=== PATIENT | female | born 1955 | race Caucasian/White ===

== ENCOUNTER 2019-06-28 12:07 | Inpatient (IN) ==
--- OUTSIDE RECORDS SUMMARY | 2019-06-28 12:09 | External Medical Summary | Continuity of Care Document ---
:1955 Author Name Aleida Hull Address Unavailable Unavailable , Care Team Providers Name Role Phone Tarik Crenshaw M.D. Unavailable [email or web address] PCP, NO Unavailable Unavailable Problems Active medical history not documented Allergies and Adverse Reactions Allergy history not documented Medications Medications not documented Procedures Procedures not documented Immunizations Immunizations not documented Plan of Treatment Planned Observations Planned Goals not documented Results No Known Results Results not documented
--- OUTSIDE RECORDS SUMMARY | 2019-06-28 12:09 | External Medical Summary | Continuity of Care Document ---
:1955 Author Name Aleida Hull Address Unavailable Unavailable , Care Team Providers Name Role Phone Tarik Crenshaw M.D. Unavailable [email or web address] PCP, NO Unavailable Unavailable Problems Active medical history not documented Allergies and Adverse Reactions Allergy history not documented Medications Medications not documented Procedures Procedures not documented Immunizations Immunizations not documented Plan of Treatment Planned Observations Planned Goals not documented Results No Known Results Results not documented
[2019-06-28] MEDS ORDERED: SODIUM CHLORIDE 0.9% 1000ML 1,000 ML IV ONE (12:36)
[2019-06-28] MEDS ORDERED: ONDANSETRON INJ 2 MG/ML 2 ML VIAL IV STA (13:10)
[2019-06-28] MEDS ORDERED: HYDROmorphone INJ 0.5 MG/0.5 ML SYR IV STA (13:10)
[2019-06-28 13:18] LABS: Basophils # (auto) 0.02 K/uL (0-0.2); Basophils % (auto) 0.2 %; Eosinophils # (auto) 0.04 K/uL (0-0.5); Eosinophils % (auto) 0.4 %; Hemoglobin 14.3 g/dL (12.0-16.0); Immature Granulocytes # (auto) 0.02 K/uL (0.00-0.02); Immature Granulocytes % (auto) 0.2 %; Lymphocytes # (auto) 1.43 K/uL (1.2-3.4); Lymphocytes % (auto) 14.6 %; Mean Corpuscular Hemoglobin 30.6 pg (25-34); Mean Corpuscular Volume 89.7 fL (80-100); Mean Platelet Volume 10.2 fL (7.4-10.4); Monocytes # (auto) 0.75 K/uL (0.11-0.59); Monocytes % (auto) 7.7 %; Neutrophils # (auto) 7.53 K/uL (1.4-6.5); Neutrophils % (auto) 76.9 %; Platelet Count 219 K/uL (130-400); RDW Coefficient of Variation 13.2 % (11.5-14.5); RDW Standard Deviation 43.1 fL (36.4-46.3); Red Blood Count 4.68 M/uL (4.2-5.4); White Blood Count 9.79 K/uL (4.8-10.8)
[2019-06-28 13:36] LABS: Alanine Aminotransferase 15 U/L (12-78); Albumin Level 3.5 gm/dl (3.4-5.0); Aspartate Aminotransferase 8 U/L (15-37); BUN Creatinine Ratio 14.2 (10-20); Blood Urea Nitrogen 12 mg/dl (7-18); Calcium 9.7 mg/dl (8.5-10.1); Carbon Dioxide 27 mmol/L (21-32); Chloride 104 mmol/L (98-107); Creatinine Clr Calc Pharmacy 74.2 ml/min; Est GFR (African American) 82.8; Est GFR (Non-African American) 71.4; Glucose 91 mg/dl (70-99); Lipase 46 U/L (73-393); Potassium 3.7 mmol/L (3.5-5.1); Sodium 137 mmol/L (136-145)
[2019-06-28 13:41] LABS: Albumin Globulin Ratio 0.8 (0.9-2); Alkaline Phosphatase 83 U/L (45-117); Bilirubin,Total 0.7 mg/dl (0.2-1); Globulin 4.4 gm/dl (2.5-4.0); Total Protein 7.9 gm/dl (6.4-8.2); Troponin I < 0.015 ng/ml (0-0.045)
[2019-06-28] MEDS ORDERED: IOVERSOL 100ml IV PRN (13:49)
--- NOTE | 2019-06-28 14:23 | CT Scan Report ---
ABDOMEN AND PELVIS CT WITH IV CONTRAST CT DOSE: 632.66 mGy.cm HISTORY: Acute generalized abdominal pain abd pain, appy vs diverticulitis TECHNIQUE: Multiaxial CT images of the abdomen and pelvis were performed following the IV administrat ion of 94 cc of Optiray 320, A dose lowering technique was utilized adhering to the principles of AL MICHELLE. COMPARISON STUDY: CT abdomen and pelvis 07/08/2018 FINDINGS: Minimal dependent subsegmental bibasilar atelectasis. Trace right pleural effusion. No pneumatosis or pneumoperitoneum. The imaged inferior cardiac chambers are unremarkable. Spleen, adrenal glands, tapia creas, gallbladder and liver appear unremarkable. Patency of the hepatic and portal veins. 1.6 cm int erpolar right and 6 mm inferior pole left renal hypodensities suggest probable cysts. 2 mm nonobstruc ting calculus of the inferior pole right kidney. No ureteral calculi or obstructive uropathy. Partial distention of the urinary bladder with mild wall thickening. Hysterectomy. No adnexal mass lesions. Aorta and IVC are unremarkable. No adenopathy. Multiple phleboliths are noted about the pelvis. Mild nonspecific wall thickening of the distal esophagus. No bowel obstruction. There is moderate wal l thickening involving a 13 cm segment of mid sigmoid colon with mucosal hyperemia. Colonic diverticu li are also noted within this distribution. Moderate pericolonic inflammation with trace free fluid. There is a small peripherally enhancing fluid collection along the inferior aspect of the mid sigmoid on image 39 series 3, 1.2 x 0.8 cm which courses towards the left aspect of the vaginal cuff. No yamilet inable fluid collection. There are multiple adjacent subcentimeter lymph nodes within the sigmoid mes ocolon. Fluid and stool is noted throughout the bowel. Fluid-filled nondilated appendix this likely p hysiologic. Soft tissues are unremarkable. Bones appear intact. 8 mm sclerotic focus involving the le ft L2 pedicle is unchanged from comparison. IMPRESSION: 1. 13 cm segment of sigmoid colon demonstrates moderate wall thickening with mucosal hyperemia, moder ate surrounding inflammation with trace reactive free fluid. Findings are suggestive of focal colitis , diverticulitis or mucosal neoplasm. Correlation with follow-up colonoscopy recommended. 2. There is a small peripherally enhancing fluid collection interposed between the inflamed sigmoid c olon and vaginal cuff measuring up to 1.2 x 0.8 cm suggestive of a small abscess/contained perforatio n with possible colovaginal fistula. 3. Multiple prominent lymph nodes of the sigmoid mesocolon may be reactive or metastatic. 4. No bowel obstruction, pneumatosis or pneumoperitoneum. 5. Trace right pleural effusion. ACT 112: Negative or not required by law. The above report was generated using voice recognition software. It may contain grammatical, syntax o r spelling errors. Electronically signed by: Candido Lopez M.D. 06/28/2019 2:21 PM
[2019-06-28] MEDS ORDERED: CIPROFLOXACIN 400 MG/200 ML BAG IV STA (15:02)
[2019-06-28] MEDS ORDERED: metroNIDAZOLE 500 MG/100 ML BAG IV STA (15:02)
[2019-06-28 15:31] LABS: Appearance Urine Clear (Clear); Bacteria Urine Automated Negative (Negative); Bilirubin Urine Negative (Negative); Blood Urine 3+ (Negative); Epithelial Cell Urine Auto >30 /lpf (0-5); Glucose Urine UA Negative (Negative); Ketones Urine 2+ (Negative); Leukocyte Esterase Urine Negative (Negative); Nitrite Urine Negative (Negative); Protein Urine Negative (Negative); RBC Urine Automated >30 /hpf (0-4); Specific Gravity Urine > 1.045 (1.000-1.030); Urobilinogen Urine Negative (Negative); pH Urine 5.5 (4.5-7.5)
[2019-06-28 15:35] LABS: Color Urine Dark Yellow
--- NOTE | 2019-06-28 15:39 | Surgery Consultation ---
Date of Consultation June 28, 2019 Assessment & Plan (1) Diverticulitis of intestine with abscess without bleeding: Small abscess, no acute abdominal findings. Being admitted for IV abx, can have clears tonight. Should have outpatient colonoscopy. After colonoscopy, can also be seen in surgery clinic to discuss elective resection. Supervising Physician Co-Signing Physician Notes Patient seen and examined, labs and imaging reviewed, agree with above. 64-year-old otherwise healthy female with repeated episodes of outpatient treatment for diverticulitis over the past several years presented with worsening abdominal pain and generalized ill feeling. Last colonoscopy 2016. She has a history of hysterectomy. On exam she is afebrile with stable vitals, tender to palpation in the lower abdomen and left lower quadrant. No guarding or rebound. Labs unremarkable except for a slight left shift on her WBC. CT scan showed diverticulitis with possible 1.8 cm abscess and possible colo- vaginal fistula. She denies any gas or discharge from her vagina. Diverticulitis, no indication for urgent surgical intervention Admission to medicine for IV antibiotics Will need outpatient colonoscopy in 6 to 8 weeks, possible LIME MIXER evaluation with speculum exam to assess for possible fistula. However I find the likelihood of her having an asymptomatic colovaginal fistula unlikely at this point. Would recommend outpatient follow-up with myself or another surgeon to discuss possible sigmoidectomy Surgery will follow, call with questions or concerns History of Present Illness History of Present Illness 64 y/o female with mid abdominal pain, bloating that began 3 days ago, increased yesterday. Saw her PCP this morning who referred her to the ED. She has had approx 4 attacks of diverticulitis in the past several years. Had colonoscopy in 2016, hysterectomy approx 15 years ago. Had regular BM Tuesday when symptoms began, none since then. Allergies Allergy/AdvReac Type Severity Reaction Status Date / Time No Known Allergies Allergy Unknown Verified 06/28/19 15:37 Home Medications Home Medications Medication Instructions Recorded Confirmed Type cholecalciferol (vitamin D3) 2,000 unit PO QAM 07/08/18 06/28/19 History [Vitamin D3] omeprazole 20 mg PO QAM 07/08/18 06/28/19 History trazodone 75 mg PO HS 07/08/18 06/28/19 History Saccharomyces boulardii 500 mg PO BID 06/28/19 06/28/19 History celecoxib [Celebrex] 0 mg PO UD PRN 06/28/19 06/28/19 History duloxetine [Cymbalta] 0 mg PO QAM 06/28/19 06/28/19 History hydrocodone-acetaminophen [[place]] 1 tab PO Q4H PRN 06/28/19 06/28/19 History Patient History Medical History Diverticulitis Surgical History (Updated 06/28/19 @ 15:30 by Hiram Russ Jr, PA-C) Hx of hysterectomy No significant past surgical history Social History Preferred Language: Hebrew Communication Ability: Effective Visual Impairment: No Limitations Hearing Ability: Normal Architect In Training Required: No Beliefs That Will Affect Care: None marital status: Current Living Situation: Spouse current occupational status: employed Other Information That Helps Us Care for You: No Feels Safe at Home: Yes Safety Concerns: Feels Safe At This Time Smoking Status: Former smoker Hx Alcohol Use: No Hx Substance Use: No Review of Systems Constitutional: + anorexia; no fever and no chills Gastrointestinal: + abdominal pain and + bloating; no nausea, no vomiting, no change in bowel habits, no diarrhea/loose stools, no blood in stools and no melena Genitourinary: no vaginal discharge Physical Exam 2 Constitutional: WD/WN, vitals as above Respiratory: normal respiratory effort Cardiovascular: Rate/Rhythm: regular rate Gastrointestinal (Abdomen): Inspection/Auscultation: + abdomen distended (minimal) Percussion/Palpation: + abdomen tender (suprapubic>LLQ) and abdomen soft Results & Data Vital Signs (Past 12 Hours) Vital Signs Temp Pulse Pulse Resp BP BP Pulse Ox 06/28/19 14:13 72 18 125/48 L 99 06/28/19 13:19 73 16 144/69 H 96 06/28/19 13:15 95 06/28/19 12:12 36.7 C 94 H 17 125/77 94 PG Care Time/CCT Total # of Minutes Spent Total Time Spent with Patient: Total time spent is greater than 50% in coordination of care (as documented) at patient's floor/unit and/or counseling patient: (1) Diverticulitis of intestine with abscess without bleeding Diverticulitis site: unspecified part of intestinal tract Qualified Code(s): K57.80 - Diverticulitis of intestine, part unspecified, with perforation and abscess without bleeding
--- NOTE | 2019-06-28 17:48 | Emergency Department Note ---
Entered by Rosenda Kirkpatrick acting as a scribe for Joselyn Fish MD History of Present Illness General Chief complaint: Abdominal Pain Stated complaint: ABDOMINAL PAIN Time Seen by Provider: 06/28/19 12:36 Source: patient History of Present Illness Provider complaint: abdominal pain Onset (ago): day(s) 2 Location: abdomen Pain Consistency: + intermittent and + other (worsening) Maximum Pain Intensity: 7 Quality: + stabbing and + other (abdominal pain) Associated symptoms: + loss of appetite and + other (Negative diarrhea; Negative recent bowel movement;); no fever/chills and no nausea/vomiting The patient, who is a 64 year old female with a medical history of diverticulitis and C Diff, presents to the Emergency Room with complaints of abdominal pain that started two days ago. The patient expresses that her symptoms feels like gas gas pain with intermittent stabbing sensations. The patient states that the pain is toward her epigastric region. The patient states that over the course of two days the pain is worsening. The patient expresses that she has had a loss of appetite for 3 days and has only been drinking fluids. The patient denies any urinary symptoms and states that she has not had a bowel movement in four days. The patient denies a fever, vomiting or diarrhea. The patient reports that she her latest episode of diverticulitis occurred a year ago. Patient developed C. difficile after being treated with Augmentin and subsequently Cipro Flagyl. She was on a prolonged taper of oral vancomycin thereafter. The patient denies a surgical history of an appendectomy or chol ecystectomy. Home Medications Home Medications Medication Instructions Recorded Confirmed Type cholecalciferol (vitamin D3) 2,000 unit PO QAM 07/08/18 06/28/19 History [Vitamin D3] omeprazole 20 mg PO QAM 07/08/18 06/28/19 History trazodone 75 mg PO HS 07/08/18 06/28/19 History Saccharomyces boulardii 500 mg PO BID 06/28/19 06/28/19 History celecoxib [Celebrex] 200 mg PO DAILY PRN 06/28/19 06/28/19 History duloxetine 30 mg PO DAILY 06/28/19 06/28/19 History valacyclovir [Valtrex] 2,000 mg PO BID PRN 06/28/19 06/28/19 History Allergies Allergy/AdvReac Type Severity Reaction Status Date / Time No Known Allergies Allergy Unknown Verified 06/28/19 15:37 Past Med/Surg History Medical History C. difficile diarrhea Diverticulosis Surgical History Hx of hysterectomy S/P laminectomy Cervical Family History (Updated 06/28/19 @ 19:17 by ОЛЕГ Serrano) Father Diabetes Social History Preferred Language: Kinyarwanda Communication Ability: Effective Visual Impairment: No Limitations Hearing Ability: Normal Director Of Catering Sales Required: No Beliefs That Will Affect Care: None marital status: Current Living Situation: Spouse current occupational status: employed Other Information That Helps Us Care for You: No Feels Safe at Home: Yes Safety Concerns: Feels Safe At This Time Smoking Status: Former smoker Hx Alcohol Use: Yes Alcohol Intake Frequency: Holidays/Special Occasions Hx Substance Use: No Review of Systems See HPI for pertinent positives & negatives. and A total of 10 systems reviewed and were otherwise negative Physical Exam Vital Signs Vital Signs - 24 hr 06/28/19 12:12 06/28/19 13:15 06/28/19 13:19 Temperature 36.7 C Temperature Source Oral Pulse Rate 94 H Pulse Rate [Left Finger] 73 Respiratory Rate 17 16 Respiratory Effort / Characteristics Non-Labored Non-Labored Spontaneous Respiratory Depth Normal Normal Respiratory Pattern Regular Blood Pressure 125/77 Blood Pressure [Left Arm] 144/69 H Blood Pressure Mean 93 Blood Pressure Mean [Left Arm] 94 Blood Pressure Position Sitting Pulse Oximetry 94 95 96 Oxygen Delivery Method Room Air Room Air Room Air Sepsis Recent Fever Within 48 Hours No Sepsis New/Unexplained Change in Mental Status No Sepsis Action Taken by Nursing No Action Required 06/28/19 14:13 Temperature Temperature Source Pulse Rate Pulse Rate [Left Finger] 72 Respiratory Rate 18 Respiratory Effort / Characteristics Respiratory Depth Normal Respiratory Pattern Blood Pressure Blood Pressure [Left Arm] 125/48 L Blood Pressure Mean Blood Pressure Mean [Left Arm] 73 Blood Pressure Position Pulse Oximetry 99 Oxygen Delivery Method Room Air Sepsis Recent Fever Within 48 Hours Sepsis New/Unexplained Change in Mental Status Sepsis Action Taken by Nursing Vital signs reviewed. General: Well-appearing 64 yo female, in no significant distress. HEENT: No scleral icterus, PERRLA, neck supple. Atraumatic. Cardiovascular: Regular rate and rhythm, no extra sounds. Pulmonary: Clear to auscultation bilaterally, normal work of breathing. Abdomen: Soft, tender to palpation over the suprapubic region and right lower quadrant, positive rebound and guarding, nondistended, positive bowel sounds. Musculoskeletal: Atraumatic, no peripheral edema. Neurologic: Patient awake alert and oriented x 3 Skin: Warm, dry, no rash Course Course 1248: Past medical records reviewed. The patient was evaluated in room B3. A complete history and physical exam was performed. 1455: I reviewed the patient's case with Dr. Strong, General Surgery PA. He states that he will accept her for further management. 1501: [facility] will evaluate the patient for further management. Consultations Consultation #1: I reviewed the patient's case with Dr. Strong General Surgery PA. He states that he will accept her for further management. Time: 14:55 Consultation #2: [facility] He will evaluate the patient for further management. Time: 15:01 Administered Medications Dextrose/Sodium Chloride (D5w And Nss) 1,000 mls @ 100 mls/hr IV .Q10H ADRYAN Stop: 07/28/19 17:49 Last Admin: 06/28/19 20:12 Dose: 100 mls/hr Documented by: [id number] Discontinued Medications Hydromorphone HCl (Dilaudid) 0.5 mg IV NOW STA Stop: 06/28/19 13:11 Last Admin: 06/28/19 13:17 Dose: 0.5 mg Documented by: [id number] Sodium Chloride (Nss 1000ml) 1,000 mls @ 125 mls/hr IV .Q8H ONE Stop: 06/28/19 20:35 Last Infusion: 06/28/19 20:14 Dose: 0 mls/hr Documented by: [id number] Admin: 06/28/19 13:09 Dose: 125 mls/hr Documented by: [id number] Ciprofloxacin (Cipro) 400 mg in 200 mls @ 200 mls/hr IV NOW STA Stop: 06/28/19 16:01 Last Infusion: 06/28/19 18:27 Dose: 0 mls/hr Documented by: [id number] Admin: 06/28/19 16:36 Dose: 200 mls/hr Documented by: [id number] Metronidazole (Flagyl) 500 mg in 100 mls @ 100 mls/hr IV NOW STA Stop: 06/28/19 16:01 Last Infusion: 06/28/19 16:36 Dose: 0 mls/hr Documented by: [id number] Admin: 06/28/19 15:28 Dose: 100 mls/hr Documented by: [id number] Ioversol (Optiray 320 100ml) 94 ml IV ONCE PRN PRN Reason: Interaction Checking Stop: 07/02/19 13:48 Last Admin: 06/28/19 13:50 Dose: 94 ml Documented by: [id number] Ondansetron HCl (Zofran) 4 mg IV NOW STA Stop: 06/28/19 13:11 Last Admin: 06/28/19 13:17 Dose: 4 mg Documented by: [id number] Medical Decision Making Differential Diagnosis Differential diagnosis includes: appendicitis, diverticulitis, PUD, biliary pathology, UTI, pancreatitis, obstruction, mesenteric ischemia, aortic pathology, infections, inflammatory bowel disease, renal colic, as well as others were entertained. Medical Records Attestation: I reviewed the patient's medical records. Home Medications Current Medication List: was personally reviewed by me Laboratory Data Attestation: I reviewed the patient's lab results. Result diagrams: 06/28/19 13:03 06/28/19 13:03 Lab Results 06/28/19 06/28/19 06/28/19 Range/Units 13:03 13:03 15:07 WBC 9.79 (4.8-10.8) K/uL RBC 4.68 (4.2-5.4) M/uL Hgb 14.3 (12.0-16.0) g/dL Hct 42.0 (37-47) % MCV 89.7 (80-100) fL MCH 30.6 (25-34) pg MCHC 34.0 (32-36) g/dL RDW Std Deviation 43.1 (36.4-46.3) fL RDW Coeff of [place] 13.2 (11.5-14.5) % Plt Count 219 (130-400) K/uL MPV 10.2 (7.4-10.4) fL Immature Gran % (Auto) 0.2 % Neut % (Auto) 76.9 % Lymph % (Auto) 14.6 % [place] % (Auto) 7.7 % Eos % (Auto) 0.4 % Baso % (Auto) 0.2 % Immature Gran # (Auto) 0.02 (0.00-0.02) K/uL Neut # (Auto) 7.53 H (1.4-6.5) K/uL Lymph # (Auto) 1.43 (1.2-3.4) K/uL [place] # (Auto) 0.75 H (0.11-0.59) K/uL Eos # (Auto) 0.04 (0-0.5) K/uL Baso # (Auto) 0.02 (0-0.2) K/uL Sodium 137 (136-145) mmol/L Potassium 3.7 (3.5-5.1) mmol/L Chloride 104 (98-107) mmol/L Carbon Dioxide 27 (21-32) mmol/L Anion Gap 7.0 (3-11) BUN 12 (7-18) mg/dl Creatinine 0.85 (0.6-1.2) mg/dl Est Cr Clr Drug Dosing 74.2 ml/min Est GFR ( Amer) 82.8 Est GFR (Non-Af Amer) 71.4 BUN/Creatinine Ratio 14.2 (10-20) Glucose 91 (70-99) mg/dl Calcium 9.7 (8.5-10.1) mg/dl Total Bilirubin 0.7 (0.2-1) mg/dl AST 8 L (15-37) U/L ALT 15 (12-78) U/L Alkaline Phosphatase 83 (45-117) U/L Troponin I < 0.015 (0-0.045) ng/ml Total Protein 7.9 (6.4-8.2) gm/dl Albumin 3.5 (3.4-5.0) gm/dl Globulin 4.4 H (2.5-4.0) gm/dl Albumin/Globulin Ratio 0.8 L (0.9-2) Lipase 46 L (73-393) U/L Urine Color Dark Yellow Urine Appearance Clear (Clear) Urine pH 5.5 (4.5-7.5) Ur Specific [place] > 1.045 H (1.000-1.030) Urine Protein Negative (Negative) Urine Glucose (UA) Negative (Negative) Urine Ketones 2+ H (Negative) Urine Blood 3+ H (Negative) Urine Nitrite Negative (Negative) Urine Bilirubin Negative (Negative) Urine Urobilinogen Negative (Negative) Ur Leukocyte Esterase Negative (Negative) Urine WBC (Auto) 5-10 H (0-5) /hpf Urine RBC (Auto) >30 H (0-4) /hpf U Hyaline Cast (Auto) 1-5 (0-5) /lpf U Epithel Cells (Auto) >30 H (0-5) /lpf Urine Bacteria (Auto) Negative (Negative) Imaging Data Radiologist's Impression: Radiology results as stated below per my review and the radiologist's interpretation: ABDOMEN AND PELVIS CT WITH IV CONTRAST CT DOSE: 632.66 mGy.cm HISTORY: Acute generalized abdominal pain abd pain, appy vs diverticulitis TECHNIQUE: Multiaxial CT images of the abdomen and pelvis were performed following the IV administration of 94 cc of Optiray 320, A dose lowering technique was utilized adhering to the principles of ALARA. COMPARISON STUDY: CT abdomen and pelvis 07/08/2018 FINDINGS: Minimal dependent subsegmental bibasilar atelectasis. Trace right pleural effusion. No pneumatosis or pneumoperitoneum. The imaged inferior cardiac chambers are unremarkable. Spleen, adrenal glands, pancreas, gallbladder and liver appear unremarkable. Patency of the hepatic and portal veins. 1.6 cm interpolar right and 6 mm inferior pole left renal hypodensities suggest probable cysts. 2 mm nonobstructing calculus of the inferior pole right kidney. No ureteral calculi or obstructive uropathy. Partial distention of the urinary bladder with mild wall thickening. Hysterectomy. No adnexal mass lesions. Aorta and IVC are unremarkable. No adenopathy. Multiple phleboliths are noted about the pelvis. Mild nonspecific wall thickening of the distal esophagus. No bowel obstruction. There is moderate wall thickening involving a 13 cm segment of mid sigmoid colon with mucosal hyperemia. Colonic diverticuli are also noted within this distribution. Moderate pericolonic inflammation with trace free fluid. There is a small peripherally enhancing fluid collection along the inferior aspect of the mid sigmoid on image 39 series 3, 1.2 x 0.8 cm which courses towards the left aspect of the vaginal cuff. No drainable fluid collection. There are multiple adjacent subcentimeter lymph nodes within the sigmoid mesocolon. Fluid and stool is noted throughout the bowel. Fluid-filled nondilated appendix this likely physiologic. Soft tissues are unremarkable. Bones appear intact. 8 mm sclerotic focus involving the left L2 pedicle is unchanged from comparison. IMPRESSION: 1. 13 cm segment of sigmoid colon demonstrates moderate wall thickening with mucosal hyperemia, moderate surrounding inflammation with trace reactive free fluid. Findings are suggestive of focal colitis, diverticulitis or mucosal neoplasm. Correlation with follow-up colonoscopy recommended. 2. There is a small peripherally enhancing fluid collection interposed between the inflamed sigmoid colon and vaginal cuff measuring up to 1.2 x 0.8 cm suggestive of a small abscess/contained perforation with possible colovaginal fistula. 3. Multiple prominent lymph nodes of the sigmoid mesocolon may be reactive or metastatic. 4. No bowel obstruction, pneumatosis or pneumoperitoneum. 5. Trace right pleural effusion. ACT 112: Negative or not required by law. The above report was generated using voice recognition software. It may contain grammatical, syntax or spelling errors. Electronically signed by: Candido Lopez M.D. 06/28/2019 2:21 PM ECG Data Attestation: I personally reviewed and interpreted this ECG as follows: Indication: + abdominal pain Rate (beats per minute): 68 Rhythm: + normal sinus ECG Intervals/blocks: + Normal QT ECG ST segments: + ST elevation (Nonspecific in lateral leads) ECG Findings: + Other (No ectopy) Comparison ECG Date: from (11/02/2011) Change: no significant change Blood Pressure Blood Pressure Findings: Elevated blood pressure Blood Pressure Disposition: further management by hospitalist MDM Narrative This patient was evaluated and appeared to be in no significant distress. Physical examination is significant for midline to right lower quadrant abdominal tenderness. CT imaging was performed and reveals evidence of a thickened sigmoid with secondary small abscess of approximately 1 cm. It is located between the vaginal cuff and the sigmoid colon. Patient has a normal WBC and is afebrile. Case was discussed with general surgery PA, Alejandro Russ, he agrees the patient can stay here for initial management. Patient will be evaluated by the hospitalist service for further evaluation and management. IV Cipro and IV Flagyl have been initiated. Patient did receive IV Dilaudid and Zofran for her discomforts. She is aware of the plan for admission and agrees. Impression & Plan Diverticulitis of intestine with abscess without bleeding Discharge Plan Visit Data *Final* Discharge Date/Time: 06/28/19 17:17 Chief Complaint: Abdominal Pain Stated Complaint: ABDOMINAL PAIN ED Provider: Joselyn Fish Discharge Problem: Diverticulitis of intestine with abscess without bleeding Patient Disposition: Admitted As Inpatient Discharge Instructions Interventions: ED Discharge Assessment Last Done: 06/28/19 17:17 Discharge Problem: Diverticulitis of intestine with abscess without bleeding Qualifiers: Diverticulitis site: unspecified part of intestinal tract Qualified Code(s): K57.80 - Diverticulitis of intestine, part unspecified, with perforation and abscess without bleeding The scribe's documentation has been prepared under my direction and personally reviewed by me in its entirety. I confirm that the note above accurately reflects all work, treatment, procedures, and medical decision making performed by me.
[2019-06-28] MEDS ORDERED: MoRPHine SULFATE 4 MG/ML 1 ML CARP\\VIAL IV PRN (17:50)
[2019-06-28] MEDS ORDERED: ACETAMINOPHEN 325 MG TAB PO PRN (17:50)
[2019-06-28] MEDS ORDERED: ONDANSETRON INJ 2 MG/ML 2 ML VIAL IV PRN (17:50)
--- NOTE | 2019-06-28 19:27 | History & Physical Report ---
Date of Service June 28, 2019 Assessment & Plan (1) Diverticulitis of intestine with abscess without bleeding: -Admit to [facility] -Patient presenting by referral to PCPs office for evaluation of abdominal pain -In the ED, CT ABD/pelvis showing 1. 13 cm segment of sigmoid colon demonstrates moderate wall thickening with mucosal hyperemia, moderate surrounding inflammation with trace reactive free fluid. Findings are suggestive of focal colitis, diverticulitis or mucosal neoplasm. Correlation with follow-up colonoscopy recommended. 2. There is a small peripherally enhancing fluid collection interposed between the inflamed sigmoid colon and vaginal cuff measuring up to 1.2 x 0.8 cm suggestive of a small abscess/contained perforation with possible colovaginal fistula. 3. Multiple prominent lymph nodes of the sigmoid mesocolon may be reactive or metastatic. -Hemodynamically stable, labs unremarkable; does not appear septic -No signs or symptoms of colovaginal fistula, however may need follow-up with CUSTOM FEED MILL OPERATOR HELPER for exam with speculum -S/p Cipro and Flagyl in the ED, will continue with -History of C. difficile infection after treatment for diverticulitis in 2018, continue probiotics while on antibiotics -Clear liquids, IVF, pain control -General surgery consulted, no need for surgical intervention at this time however needs outpatient follow-up for possible elective sigmoid resection, input appreciated -will need follow-up colonoscopy in 6 to 8 weeks; last colonoscopy 2016: 2 polyps removed, diverticulosis of sigmoid colon, internal hemorrhoids (2) DVT prophylaxis: -SQ Lovenox History of Present Illness Chief Complaint: Abdominal pain Primary Care Provider: Spenser Fuller DO 64-year-old female who presents the ED for evaluation abdominal pain. Patient reports her symptoms began 4 days ago. Describes that she is having generalized abdominal pain that is worse in the lower quadrants. Denies nausea, vomiting, diarrhea. Was seen at PCPs office today and found to have low-grade fever. No chills or rigors. Was referred to ER for further evaluation. Patient with history of diverticulitis in May 2019 with subsequent C. difficile infection. Patient reports she has not had a follow-up colonoscopy since that episode diverticulitis. Denies vaginal discharge or gas. Patient denies chest pain shortness of breath. No lightheadedness, dizziness, diaphoresis, syncopal events. Denies urinary symptoms. In the ED, CT ABD/pelvis is showing sigmoid diverticulitis with small abscess. Unremarkable. Patient is hemodynamically stable. She was given IVF, IV Zofran, IV Dilaudid, IV Flagyl, IV Cipro. Allergies Allergy/AdvReac Type Severity Reaction Status Date / Time No Known Allergies Allergy Unknown Verified 06/28/19 15:37 Home Medications Home Medications Medication Instructions Recorded Confirmed Type cholecalciferol (vitamin D3) 2,000 unit PO QAM 07/08/18 06/28/19 History [Vitamin D3] omeprazole 20 mg PO QAM 07/08/18 06/28/19 History trazodone 75 mg PO HS 07/08/18 06/28/19 History Saccharomyces boulardii 500 mg PO BID 06/28/19 06/28/19 History celecoxib [Celebrex] 200 mg PO DAILY PRN 06/28/19 06/28/19 History duloxetine 30 mg PO DAILY 06/28/19 06/28/19 History valacyclovir [Valtrex] 2,000 mg PO BID PRN 06/28/19 06/28/19 History Past Med/Surg History Medical History C. difficile diarrhea Diverticulosis Surgical History Hx of hysterectomy S/P laminectomy Cervical Family History (Updated 06/28/19 @ 19:17 by ОЛЕГ Serrano) Father Diabetes Social History Preferred Language: Mongolian Communication Ability: Effective Visual Impairment: No Limitations Hearing Ability: Normal Financial Services Representative Required: No Beliefs That Will Affect Care: None marital status: Current Living Situation: Spouse current occupational status: employed Other Information That Helps Us Care for You: No Feels Safe at Home: Yes Safety Concerns: Feels Safe At This Time Smoking Status: Former smoker Hx Alcohol Use: Yes Alcohol Intake Frequency: Holidays/Special Occasions Hx Substance Use: No Review of Systems Review of Systems: ROS per HPI, all other systems reviewed and negative Physical Exam Constitutional: WD/WN, vitals as above Eyes: PERRL, conjunctivae normal, anicteric sclerae ENMT: external ear and nose normal, oropharynx normal Respiratory: normal respiratory effort, lungs clear to auscultation Cardiovascular: Rate/Rhythm: regular rate and regular rhythm Vessels: normal peripheral pulses Extremities: no edema Gastrointestinal (Abdomen): Inspection/Auscultation: normal bowel sounds Percussion/Palpation: + abdomen tender (Generalized, more pronounced in RLQ) and abdomen soft; no hepatosplenomegaly Musculoskeletal: no cyanosis or clubbing, extremities motor strength 5/5 Skin: no rashes, warm and dry Neurologic: PERRL, EOMI, accommodation nl, no face palsy, no dysarthria Psychiatric: A+Ox3, euthymic affect Results & Data Vital Signs (Past 12 Hours) Vital Signs Temp Pulse Pulse Resp BP BP Pulse Ox 06/28/19 17:42 36.6 C 74 18 144/74 H 94 06/28/19 17:17 71 20 136/78 99 06/28/19 16:20 73 20 134/47 L 06/28/19 14:13 72 18 125/48 L 99 06/28/19 13:19 73 16 144/69 H 96 06/28/19 13:15 95 06/28/19 12:12 36.7 C 94 H 17 125/77 94 Laboratory Results Short CBC 06/28/19 Range/Units 13:03 WBC 9.79 (4.8-10.8) K/uL Hgb 14.3 (12.0-16.0) g/dL Hct 42.0 (37-47) % Plt Count 219 (130-400) K/uL BMP 06/28/19 13:03 Sodium 137 Potassium 3.7 Chloride 104 Carbon Dioxide 27 BUN 12 Creatinine 0.85 Glucose 91 Calcium 9.7 Cardiac Enzymes 06/28/19 Range/Units 13:03 Troponin I < 0.015 (0-0.045) ng/ml Liver Function 06/28/19 Range/Units 13:03 Total Bilirubin 0.7 (0.2-1) mg/dl AST 8 L (15-37) U/L ALT 15 (12-78) U/L Alkaline Phosphatase 83 (45-117) U/L Albumin 3.5 (3.4-5.0) gm/dl Urine 06/28/19 Range/Units 15:07 Urine Color Dark Yellow Urine Appearance Clear (Clear) Urine pH 5.5 (4.5-7.5) Ur Specific [place] > 1.045 H (1.000-1.030) Urine Protein Negative (Negative) Urine Glucose (UA) Negative (Negative) Diagnostic Findings CT ABD/PELVIS IMPRESSION: 1. 13 cm segment of sigmoid colon demonstrates moderate wall thickening with mucosal hyperemia, moderate surrounding inflammation with trace reactive free fluid. Findings are suggestive of focal colitis, diverticulitis or mucosal neoplasm. Correlation with follow-up colonoscopy recommended. 2. There is a small peripherally enhancing fluid collection interposed between the inflamed sigmoid colon and vaginal cuff measuring up to 1.2 x 0.8 cm suggestive of a small abscess/contained perforation with possible colovaginal fistula. 3. Multiple prominent lymph nodes of the sigmoid mesocolon may be reactive or metastatic. 4. No bowel obstruction, pneumatosis or pneumoperitoneum. 5. Trace right pleural effusion Code Status & VTE Plan VTE Prophylaxis Plan VTE Prophylaxis will be ordered: Yes Supervising Physician Co-Signing Physician Notes Pt was seen and examined. Agreed with Lisette DENNEY exam, assessment and plan. 64 yo F with PMH of diverticulitis present to the ER with worsening abdominal pain. Pt said that abdominal pain is diffuse but more intense in the left lower area, describes pain as stabbing and intermittent. CT abd/pelvis done showed 13 cm segment of sigmoid colon demonstrates moderate wall thickening with mucosal hyperemia, moderate surrounding inflammation with trace reactive free fluid. Findings are suggestive of focal colitis, diverticulitis or mucosal neoplasm. There is a small peripherally enhancing fluid collection interposed between the inflamed sigmoid colon and vaginal cuff measuring up to 1.2 x 0.8 cm suggestive of a small abscess/contained perforation with possible colovaginal fistula. Surgery on board recommended conservative management with IV abx with Cipro and Flagyl. Continue pain control and IVF. Starting on clear liquid diet. Will need to arrange for outpatient colonoscopy in 6 to weeks weeks. Monitor electrolytes. Will need to continue monitor closely. MD Michael (1) Diverticulitis of intestine with abscess without bleeding Diverticulitis site: unspecified part of intestinal tract Qualified Code(s): K57.80 - Diverticulitis of intestine, part unspecified, with perforation and abscess without bleeding
[2019-06-28] MEDS: D5W AND NSS 1,000 ML IV SCH (20:12)
[2019-06-28] MEDS: TRAZODONE HCL 50 MG TAB PO SCH (22:06)
[2019-06-28] MEDS: SACCHAROMYCES BOULARDII 250 MG CAP PO SCH (22:11)
[2019-06-28] MEDS: ENOXAPARIN INJ 40 MG/0.4 ML SYR SQ SCH (22:15)
[2019-06-28] MEDS: metroNIDAZOLE 500 MG/100 ML BAG IV SCH (23:55)
[2019-06-29] MEDS: CIPROFLOXACIN 400 MG/200 ML BAG IV SCH ×2 (04:55→17:16)
[2019-06-29] MEDS: D5W AND NSS 1,000 ML IV SCH ×3 (04:55→23:35)
[2019-06-29 06:29] LABS: Hematocrit (blood only) 36.9 % (37-47); Hemoglobin 12.2 g/dL (12.0-16.0); Mean Corpuscular Hemoglobin 29.8 pg (25-34); Mean Corpuscular Hgb Conc 33.1 g/dL (32-36); Mean Platelet Volume 9.9 fL (7.4-10.4); Platelet Count 194 K/uL (130-400); RDW Standard Deviation 43.2 fL (36.4-46.3); White Blood Count 5.87 K/uL (4.8-10.8)
--- NOTE | 2019-06-29 06:40 | Surgery Progress Note ---
Date of Service June 29, 2019 Assessment & Plan (1) Diverticulitis of intestine with abscess without bleedin64 y/o female with recurrent diverticulitis, possible small abscess and unlikely to have colovaginal fistula. Doing well may advance to full liquids if wbc stable/downtrending, then to low fiber outpatient colonoscopy with GI in 6-8 weeks possible outpatient marketing campaign analyst consult for speculum exam for poss fistula outpatient consultation for elective sigmoidectomy with myself or other surgeon call with questions or concerns Subjective 64 y/o female admitted with diverticulitis, possible 1.8 cm abscess and concern for colovaginal fistula. Doing well, pain improved, tolerated clears. Loose bm overnight. Overall feels better. Physical Exam Constitutional: WD/WN, vitals as above Gastrointestinal (Abdomen): Percussion/Palpation: + abdomen tender (mild ttp in lower abd and llq, improved) and abdomen soft; no guarding, abdomen not rigid and no hepatosplenomegaly Results & Data Vital Signs (Past 12 Hours) Vital Signs Temp Pulse Resp BP Pulse Ox 06/28/19 23:04 36.7 C 72 18 114/49 L 92 PG Care Time/CCT Total # of Minutes Spent Total Time Spent with Patient: Total time spent is greater than 50% in coordination of care (as documented) at patient's floor/unit and/or counseling patient: (1) Diverticulitis of intestine with abscess without bleeding Diverticulitis site: unspecified part of intestinal tract Qualified Code(s): K57.80 - Diverticulitis of intestine, part unspecified, with perforation and abscess without bleeding
[2019-06-29 06:53] LABS: BUN Creatinine Ratio 12.9 (10-20); Calcium 8.8 mg/dl (8.5-10.1); Creatinine Clr Calc Pharmacy 95.5 ml/min; Est GFR (African American) 106.7; Est GFR (Non-African American) 92.1; Potassium 3.7 mmol/L (3.5-5.1)
[2019-06-29] MEDS: metroNIDAZOLE 500 MG/100 ML BAG IV SCH ×3 (07:58→23:41)
--- NOTE | 2019-06-29 08:16 | Electrocardiogram Report ---
Test Reason : Blood Pressure : / mmHG Vent. Rate : 068 BPM Atrial Rate : 068 BPM P-R Int : 166 ms QRS Dur : 078 ms QT Int : 350 ms P-R-T Axes : 053 037 020 degrees QTc Int : 372 ms Normal sinus rhythm Nonspecific T wave abnormality Abnormal ECG When compared with ECG of 02-NOV-2011 08:22, No significant change was found Confirmed by Doni Villa ([id number]) on 06/28/2019 5:52:35 PM Referred By: REFERRED SELF Confirmed By:Be Villa
[2019-06-29] MEDS: SACCHAROMYCES BOULARDII 250 MG CAP PO SCH ×2 (08:42→22:22)
[2019-06-29] MEDS: DULOXETINE HCL 30 MG CAP PO SCH (08:43)
[2019-06-29] MEDS: PANTOprazole 40 MG TAB PO SCH (08:43)
[2019-06-29] MEDS ORDERED: CETIRIZINE HCL 10 MG TABLET PO PRN (16:33)
--- NOTE | 2019-06-29 16:51 | Hospitalist Progress Note ---
Date of Service June 29, 2019 Assessment & Plan (1) Diverticulitis of intestine with abscess without bleeding: History of C. difficile colitis Per admitting service notes -Patient presenting by referral to PCPs office for evaluation of abdominal pain -In the ED, CT ABD/pelvis showing 1. 13 cm segment of sigmoid colon demonstrates moderate wall thickening with mucosal hyperemia, moderate surrounding inflammation with trace reactive free fluid. Findings are suggestive of focal colitis, diverticulitis or mucosal neoplasm. Correlation with follow-up colonoscopy recommended. 2. There is a small peripherally enhancing fluid collection interposed between the inflamed sigmoid colon and vaginal cuff measuring up to 1.2 x 0.8 cm suggestive of a small abscess/contained perforation with possible colovaginal fistula. 3. Multiple prominent lymph nodes of the sigmoid mesocolon may be reactive or metastatic. -Hemodynamically stable, labs unremarkable; does not appear septic 06/29/2019 Clinically improving Afebrile, WBC decreased from 0434-6367 Diet advanced to full liquids, tolerating well so far, will advance tomorrow if continues to improve Colovaginal fistula unlikely, patient is clear urine, denies dysuria Continue Cipro plus Flagyl IV, IV fluids Continue probiotics We will need to follow-up as an outpatient with gastroenterology for endoscopy, general surgery for discussion of colectomy, GREASE REMOVER evaluation (2) DVT prophylaxis: -SQ Lovenox Disposition Pending Anticipate discharge to home medically stable, on oral antibiotics Subjective Follow-up for diverticulitis with abscess Seen sitting up in bed, comfortable, not in distress, watching TV States she feels improved compared to yesterday Still having lower abdominal pain, but improving, no fevers or chills, no nausea, tolerating full liquids well Denies chest pain, shortness of breath, palpitations, dizziness No melena hematochezia, had one loose bowel movement today, small amount Denies other symptoms Review of Systems Review of Systems: All systems reviewed & are unremarkable except as noted in HPI & below Physical Exam Physical Exam: General- oriented x 3, not in distress, speaks in sentences with no effort or accessory muscle use Head- atraumatic Eyes- PERRL, EOMI, anicteric ENT- oropharynx clear Neck- supple, no JVD, no adenopathy, no thyromegaly; carotids +2/2, no bruits appreciated Lungs- clear to auscultation bilaterally, no rales/wheezes Heart- normal rate, regular rhythm; no murmur, no gallop, no rub appreciated Abdomen- normal bowel sounds, nondistended, soft, positive mild tenderness bilateral lower quadrants Extremities- no pretibial edema, no calf tenderness; peripheral pulses intact Neuro- alert, oriented x 3; CN 2-12 grossly intact; motor 5/5 bilaterally;sensation 100% on all extremities; no other gross focal neurologic deficits Skin- warm & dry Results & Data Vital Signs (Past 12 Hours) Vital Signs Temp Pulse Pulse Resp BP Pulse Ox 06/29/19 15:26 36.7 C 66 18 110/64 96 06/29/19 07:53 36.6 C 61 16 110/56 L 94 Laboratory Results Laboratory Results - last 24 hr 06/29/19 06/29/19 06:09 06:09 WBC 5.87 RBC 4.10 L Hgb 12.2 Hct 36.9 L MCV 90.0 MCH 29.8 MCHC 33.1 RDW Std Deviation 43.2 RDW Coeff of Kalen 13.0 Plt Count 194 MPV 9.9 Sodium 140 Potassium 3.7 Chloride 111 H Carbon Dioxide 26 Anion Gap 3.0 BUN 9 Creatinine 0.66 Est Cr Clr Drug Dosing 95.5 Est GFR ( Amer) 106.7 Est GFR (Non-Af Amer) 92.1 BUN/Creatinine Ratio 12.9 Glucose 134 H Calcium 8.8 (1) Diverticulitis of intestine with abscess without bleeding Diverticulitis site: unspecified part of intestinal tract Qualified Code(s): K57.80 - Diverticulitis of intestine, part unspecified, with perforation and abscess without bleeding
[2019-06-29] MEDS: TRAZODONE HCL 50 MG TAB PO SCH (22:22)
[2019-06-29] MEDS: ENOXAPARIN INJ 40 MG/0.4 ML SYR SQ SCH (22:22)
[2019-06-30] MEDS: CIPROFLOXACIN 400 MG/200 ML BAG IV SCH ×2 (03:45→16:56)
[2019-06-30] MEDS: metroNIDAZOLE 500 MG/100 ML BAG IV SCH ×3 (07:46→23:09)
[2019-06-30 08:11] VITALS: TEMP 97.9
[2019-06-30] MEDS: D5W AND NSS 1,000 ML IV SCH (08:59)
[2019-06-30] MEDS: PANTOprazole 40 MG TAB PO SCH (09:00)
[2019-06-30] MEDS: DULOXETINE HCL 30 MG CAP PO SCH (09:00)
[2019-06-30] MEDS: SACCHAROMYCES BOULARDII 250 MG CAP PO SCH ×2 (09:00→22:06)
[2019-06-30 09:46] LABS: Basophils # (auto) 0.04 K/uL (0-0.2); Eosinophils # (auto) 0.14 K/uL (0-0.5); Eosinophils % (auto) 3.6 %; Hemoglobin 12.6 g/dL (12.0-16.0); Immature Granulocytes # (auto) 0.01 K/uL (0.00-0.02); Immature Granulocytes % (auto) 0.3 %; Lymphocytes # (auto) 0.82 K/uL (1.2-3.4); Lymphocytes % (auto) 21.2 %; Mean Corpuscular Hemoglobin 29.6 pg (25-34); Mean Corpuscular Hgb Conc 32.3 g/dL (32-36); Mean Corpuscular Volume 91.8 fL (80-100); Mean Platelet Volume 9.7 fL (7.4-10.4); Monocytes # (auto) 0.26 K/uL (0.11-0.59); Monocytes % (auto) 6.7 %; Neutrophils % (auto) 67.2 %; Platelet Count 235 K/uL (130-400); RDW Coefficient of Variation 12.9 % (11.5-14.5); RDW Standard Deviation 43.4 fL (36.4-46.3); Red Blood Count 4.25 M/uL (4.2-5.4); White Blood Count 3.87 K/uL (4.8-10.8)
[2019-06-30 10:20] LABS: Creatinine Clr Calc Pharmacy 81.9 ml/min; Est GFR (African American) 93.3; Est GFR (Non-African American) 80.5; Potassium 3.6 mmol/L (3.5-5.1)
--- NOTE | 2019-06-30 11:54 | Surgery Progress Note ---
Date of Service doing better, no abdominal pain, she tolerated full liquid June 30, 2019 Assessment & Plan (1) DVT prophylaxis: doing better, no abdominal pain, continue treatment, possible go home tomorrow, (2) Diverticulitis of intestine with abscess without bleeding: Supervising Physician Co-Signing Physician Notes Pt was seen and examined. Agreed with Lisette DENNEY exam, assessment and plan. 64 yo F with PMH of diverticulitis present to the ER with worsening abdominal pain. Pt said that abdominal pain is diffuse but more intense in the left lower area, describes pain as stabbing and intermittent. CT abd/pelvis done showed 13 cm segment of sigmoid colon demonstrates moderate wall thickening with mucosal hyperemia, moderate surrounding inflammation with trace reactive free fluid. Findings are suggestive of focal colitis, diverticulitis or mucosal neoplasm. There is a small peripherally enhancing fluid collection interposed between the inflamed sigmoid colon and vaginal cuff measuring up to 1.2 x 0.8 cm suggestive of a small abscess/contained perforation with possible colovaginal fistula. Surgery on board recommended conservative management with IV abx with Cipro and Flagyl. Continue pain control and IVF. Starting on clear liquid diet. Will need to arrange for outpatient colonoscopy in 6 to weeks weeks. Monitor electrolytes. Will need to continue monitor closely. MD Michael Subjective 64 y/o female admitted with diverticulitis, possible 1.8 cm abscess and concern for colovaginal fistula. Doing well, pain improved, tolerated clears. Loose bm overnight. Overall feels better. Physical Exam Constitutional: WD/WN, vitals as above well developed Neck: trachea midline, no thyromegaly Respiratory: normal respiratory effort, lungs clear to auscultation normal respiratory effort Cardiovascular: RRR, no murmur, no edema Gastrointestinal (Abdomen): Percussion/Palpation: abdomen soft NT, ND, BS + Musculoskeletal: no cyanosis or clubbing, extremities motor strength 5/5 Neurologic: awake Psychiatric: Orientation: alert and oriented x 3 Results & Data Vital Signs (Past 12 Hours) Vital Signs Temp Pulse Resp BP Pulse Ox 06/30/19 07:58 36.6 C 63 16 136/76 95 Laboratory Results Abnormal lab results 06/30/19 06/30/19 Range/Units 09:29 09:29 WBC 3.87 L (4.8-10.8) K/uL Lymph # (Auto) 0.82 L (1.2-3.4) K/uL Chloride 113 H (98-107) mmol/L BUN 4 L D (7-18) mg/dl BUN/Creatinine Ratio 5.0 L (10-20) Glucose 126 H (70-99) mg/dl (1) Diverticulitis of intestine with abscess without bleeding Diverticulitis site: unspecified part of intestinal tract Qualified Code(s): K57.80 - Diverticulitis of intestine, part unspecified, with perforation and abscess without bleeding
--- NOTE | 2019-06-30 14:48 | Hospitalist Progress Note ---
Date of Service June 30, 2019 Assessment & Plan (1) Diverticulitis of intestine with abscess without bleeding: History of C. difficile colitis Per admitting service notes -Patient presenting by referral to PCPs office for evaluation of abdominal pain -In the ED, CT ABD/pelvis showing 1. 13 cm segment of sigmoid colon demonstrates moderate wall thickening with mucosal hyperemia, moderate surrounding inflammation with trace reactive free fluid. Findings are suggestive of focal colitis, diverticulitis or mucosal neoplasm. Correlation with follow-up colonoscopy recommended. 2. There is a small peripherally enhancing fluid collection interposed between the inflamed sigmoid colon and vaginal cuff measuring up to 1.2 x 0.8 cm suggestive of a small abscess/contained perforation with possible colovaginal fistula. 3. Multiple prominent lymph nodes of the sigmoid mesocolon may be reactive or metastatic. -Hemodynamically stable, labs unremarkable; does not appear septic 06/29/2019 Clinically improving Afebrile, WBC decreased from [id number] Diet advanced to full liquids, tolerating well so far, will advance tomorrow if continues to improve Colovaginal fistula unlikely, patient is clear urine, denies dysuria Continue Cipro plus Flagyl IV, IV fluids Continue probiotics We will need to follow-up as an outpatient with gastroenterology for endoscopy, general surgery for discussion of colectomy, FISHING TOOL OPERATOR evaluation 06/30/2019 Continues to improve Advance diet to soft diet for dinner Continue Cipro plus Flagyl, decrease IV fluids Possible discharge tomorrow (2) DVT prophylaxis: -SQ Lovenox Disposition Pending Anticipate discharge to home medically stable, on oral antibiotics likely tomorrow Subjective Follow-up for diverticular abscess Seen resting in bed, comfortable, watching TV States she feels improved today, less abdominal pain Had 3 scant amounts of loose bowel movements today, no fevers or chills No nausea or vomiting, tolerating full liquid No other symptoms Review of Systems Review of Systems: All systems reviewed & are unremarkable except as noted in HPI & below Physical Exam Physical Exam: General- oriented x 3, not in distress, speaks in sentences with no effort or accessory muscle use Eyes- anicteric Neck- no JVD Lungs- clear breath sounds, no crackles, no wheezing bilaterally Heart- normal rate, regular rhythm; no murmurs Abdomen- normal bowel sounds, nondistended, soft, nontender Extremities- no pretibial edema, no calf tenderness Neuro- alert, oriented x 3; no gross focal neurologic deficits Skin- warm & dry Results & Data Vital Signs (Past 12 Hours) Vital Signs Temp Pulse Resp BP Pulse Ox 06/30/19 07:58 36.6 C 63 16 136/76 95 Laboratory Results Laboratory Results - last 24 hr 06/30/19 06/30/19 09:29 09:29 WBC 3.87 L RBC 4.25 Hgb 12.6 Hct 39.0 MCV 91.8 MCH 29.6 MCHC 32.3 RDW Std Deviation 43.4 RDW Coeff of Kalen 12.9 Plt Count 235 MPV 9.7 Immature Gran % (Auto) 0.3 Neut % (Auto) 67.2 Lymph % (Auto) 21.2 Payne % (Auto) 6.7 Eos % (Auto) 3.6 Baso % (Auto) 1.0 Immature Gran # (Auto) 0.01 Neut # (Auto) 2.60 Lymph # (Auto) 0.82 L Payne # (Auto) 0.26 Eos # (Auto) 0.14 Baso # (Auto) 0.04 Sodium 144 Potassium 3.6 Chloride 113 H Carbon Dioxide 27 Anion Gap 4.0 BUN 4 L D Creatinine 0.77 Est Cr Clr Drug Dosing 81.9 Est GFR ( Amer) 93.3 Est GFR (Non-Af Amer) 80.5 BUN/Creatinine Ratio 5.0 L Glucose 126 H Calcium 9.0 (1) Diverticulitis of intestine with abscess without bleeding Diverticulitis site: unspecified part of intestinal tract Qualified Code(s): K57.80 - Diverticulitis of intestine, part unspecified, with perforation and abscess without bleeding
[2019-06-30] MEDS: SODIUM CHLORIDE 0.9% 1000ML 1,000 ML IV SCH (15:51)
[2019-06-30] MEDS: ENOXAPARIN INJ 40 MG/0.4 ML SYR SQ SCH (22:06)
[2019-06-30] MEDS: TRAZODONE HCL 50 MG TAB PO SCH (22:07)
[2019-07-01] MEDS: CIPROFLOXACIN 400 MG/200 ML BAG IV SCH (03:50)
[2019-07-01 06:15] LABS: Basophils # (auto) 0.05 K/uL (0-0.2); Basophils % (auto) 1.1 %; Eosinophils # (auto) 0.22 K/uL (0-0.5); Eosinophils % (auto) 4.8 %; Hematocrit (blood only) 37.5 % (37-47); Hemoglobin 12.1 g/dL (12.0-16.0); Immature Granulocytes # (auto) 0.01 K/uL (0.00-0.02); Immature Granulocytes % (auto) 0.2 %; Lymphocytes # (auto) 1.27 K/uL (1.2-3.4); Lymphocytes % (auto) 27.8 %; Mean Corpuscular Hemoglobin 29.3 pg (25-34); Mean Corpuscular Hgb Conc 32.3 g/dL (32-36); Mean Corpuscular Volume 90.8 fL (80-100); Mean Platelet Volume 9.6 fL (7.4-10.4); Monocytes # (auto) 0.38 K/uL (0.11-0.59); Monocytes % (auto) 8.3 %; Neutrophils # (auto) 2.64 K/uL (1.4-6.5); Neutrophils % (auto) 57.8 %; Platelet Count 252 K/uL (130-400); RDW Coefficient of Variation 12.8 % (11.5-14.5); RDW Standard Deviation 42.7 fL (36.4-46.3); Red Blood Count 4.13 M/uL (4.2-5.4); White Blood Count 4.57 K/uL (4.8-10.8)
[2019-07-01 06:45] LABS: BUN Creatinine Ratio 5.7 (10-20); Calcium 9.3 mg/dl (8.5-10.1); Creatinine Clr Calc Pharmacy 77.8 ml/min; Est GFR (African American) 87.7; Est GFR (Non-African American) 75.7; Potassium 3.6 mmol/L (3.5-5.1)
[2019-07-01] MEDS: metroNIDAZOLE 500 MG/100 ML BAG IV SCH (07:08)
[2019-07-01 08:04] VITALS: BP 131/74; O2SAT 94
[2019-07-01] MEDS: PANTOprazole 40 MG TAB PO SCH (08:49)
[2019-07-01] MEDS: SACCHAROMYCES BOULARDII 250 MG CAP PO SCH (08:49)
[2019-07-01] MEDS: DULOXETINE HCL 30 MG CAP PO SCH (08:49)
--- NOTE | 2019-07-01 09:05 | Surgery Progress Note ---
Date of Service doing better, no abdominal pain, tolerated diet, normal WBC July 01, 2019 Assessment & Plan (1) DVT prophylaxis: doing better, no abdominal pain, continue treatment, possible go home tomorrow, 07/01/2019 9:04AM discharge home today, F/U Dr. Malik in 1-2 weeks, (2) Diverticulitis of intestine with abscess without bleeding: Supervising Physician Co-Signing Physician Notes Pt was seen and examined. Agreed with Lisette DENNEY exam, assessment and plan. 64 yo F with PMH of diverticulitis present to the ER with worsening abdominal pain. Pt said that abdominal pain is diffuse but more intense in the left lower area, describes pain as stabbing and intermittent. CT abd/pelvis done showed 13 cm segment of sigmoid colon demonstrates moderate wall thickening with mucosal hyperemia, moderate surrounding inflammation with trace reactive free fluid. Findings are suggestive of focal colitis, diverticulitis or mucosal neoplasm. There is a small peripherally enhancing fluid collection interposed between the inflamed sigmoid colon and vaginal cuff measuring up to 1.2 x 0.8 cm suggestive of a small abscess/contained perforation with possible colovaginal fistula. Surgery on board recommended conservative management with IV abx with Cipro and Flagyl. Continue pain control and IVF. Starting on clear liquid diet. Will need to arrange for outpatient colonoscopy in 6 to weeks weeks. Monitor electrolytes. Will need to continue monitor closely. MD Michael Subjective 64 y/o female admitted with diverticulitis, possible 1.8 cm abscess and concern for colovaginal fistula. Doing well, pain improved, tolerated clears. Loose bm overnight. Overall feels better. Physical Exam Constitutional: WD/WN, vitals as above well developed Neck: trachea midline, no thyromegaly Respiratory: normal respiratory effort, lungs clear to auscultation normal respiratory effort Cardiovascular: RRR, no murmur, no edema Gastrointestinal (Abdomen): Percussion/Palpation: abdomen soft Musculoskeletal: no cyanosis or clubbing, extremities motor strength 5/5 Neurologic: awake Psychiatric: Orientation: alert and oriented x 3 Results & Data Vital Signs (Past 12 Hours) Vital Signs Temp Pulse Resp BP Pulse Ox 07/01/19 07:22 36.6 C 63 16 131/74 94 06/30/19 23:13 36.6 C 62 14 154/76 H 95 (1) Diverticulitis of intestine with abscess without bleeding Diverticulitis site: unspecified part of intestinal tract Qualified Code(s): K57.80 - Diverticulitis of intestine, part unspecified, with perforation and abscess without bleeding
[2019-07-01] MEDS: SODIUM CHLORIDE 0.9% 1000ML 1,000 ML IV SCH (13:47)
--- NOTE | 2019-07-01 14:08 | Hospitalist Progress Note ---
Date of Service July 01, 2019 Assessment & Plan (1) Diverticulitis of intestine with abscess without bleeding: History of C. difficile colitis Per admitting service notes -Patient presenting by referral to PCPs office for evaluation of abdominal pain -In the ED, CT ABD/pelvis showing 1. 13 cm segment of sigmoid colon demonstrates moderate wall thickening with mucosal hyperemia, moderate surrounding inflammation with trace reactive free fluid. Findings are suggestive of focal colitis, diverticulitis or mucosal neoplasm. Correlation with follow-up colonoscopy recommended. 2. There is a small peripherally enhancing fluid collection interposed between the inflamed sigmoid colon and vaginal cuff measuring up to 1.2 x 0.8 cm suggestive of a small abscess/contained perforation with possible colovaginal fistula. 3. Multiple prominent lymph nodes of the sigmoid mesocolon may be reactive or metastatic. -Hemodynamically stable, labs unremarkable; does not appear septic 06/29/2019 Clinically improving Afebrile, WBC decreased from 3052-4067 Diet advanced to full liquids, tolerating well so far, will advance tomorrow if continues to improve Colovaginal fistula unlikely, patient is clear urine, denies dysuria Continue Cipro plus Flagyl IV, IV fluids Continue probiotics We will need to follow-up as an outpatient with gastroenterology for endoscopy, general surgery for discussion of colectomy, ESL INSTRUCTIONAL ASSISTANT evaluation 06/30/2019 Continues to improve Advance diet to soft diet for dinner Continue Cipro plus Flagyl, decrease IV fluids Possible discharge tomorrow 07/01/2019 Clinically improved Remains afebrile Cleared for discharge today Discharge plan: Ciprofloxacin 500 mg p.o. twice daily and Flagyl 500 mg p.o. 3 times daily x11 days to complete 2 weeks therapy Follow-up with primary care physician this week Follow-up with balance wheel hand filer for colonoscopy in 6 to 8 weeks Follow-up with general surgery and ESL INSTRUCTIONAL ASSISTANT in 2 weeks (2) DVT prophylaxis: -SQ Lovenox Disposition Discharge to home Follow-up with physicians as outlined above Patient office close today, patient will be called tomorrow for PCP follow-up schedule Subjective Follow-up for diverticulitis with possible abscess Seen sitting up in bed, comfortable, smiling, in good spirits States she feels much better overall Denies abdominal pain, nausea Tolerating diet well Small soft bowel movement today Nonbloody States she is ready and would like to be discharged today Review of Systems Review of Systems: All systems reviewed & are unremarkable except as noted in HPI & below Physical Exam Physical Exam: General- oriented x 3, not in distress, speaks in sentences with no effort or accessory muscle use Eyes- anicteric Neck- no JVD Lungs-No crackles or wheezing, clear breath sounds, bilaterally Heart- normal rate, regular rhythm; no murmurs Abdomen- normal bowel sounds, nondistended, soft, No tenderness in all quadrants Extremities- no pretibial edema, no calf tenderness Neuro- alert, oriented x 3; no gross focal neurologic deficits Skin- warm & dry Results & Data Vital Signs (Past 12 Hours) Vital Signs Temp Pulse Resp BP Pulse Ox 07/01/19 07:22 36.6 C 63 16 131/74 94 (1) Diverticulitis of intestine with abscess without bleeding Diverticulitis site: unspecified part of intestinal tract Qualified Code(s): K57.80 - Diverticulitis of intestine, part unspecified, with perforation and abscess without bleeding
--- NOTE | 2019-07-01 14:18 | Discharge Summary ---
Date of Service July 01, 2019 Admission HPI Per Admitting Provider 64-year-old female who presents the ED for evaluation abdominal pain. Patient reports her symptoms began 4 days ago. Describes that she is having generalized abdominal pain that is worse in the lower quadrants. Denies nausea, vomiting, diarrhea. Was seen at PCPs office today and found to have low-grade fever. No chills or rigors. Was referred to ER for further evaluation. Patient with history of diverticulitis in May 2019 with subsequent C. difficile infection. Patient reports she has not had a follow-up colonoscopy since that episode diverticulitis. Denies vaginal discharge or gas. Patient denies chest pain shortness of breath. No lightheadedness, dizziness, diaphoresis, syncopal events. Denies urinary symptoms. In the ED, CT ABD/pelvis is showing sigmoid diverticulitis with small abscess. Unremarkable. Patient is hemodynamically stable. She was given IVF, IV Zofran, IV Dilaudid, IV Flagyl, IV Cipro. Admission Exam Per Admitting Provider Constitutional: WD/WN, vitals as above Eyes: PERRL, conjunctivae normal, anicteric sclerae ENMT: external ear and nose normal, oropharynx normal Respiratory: normal respiratory effort, lungs clear to auscultation Cardiovascular: Rate/Rhythm: regular rate and regular rhythm Vessels: normal peripheral pulses Extremities: no edema Gastrointestinal (Abdomen): Inspection/Auscultation: normal bowel sounds Percussion/Palpation: + abdomen tender (Generalized, more pronounced in RLQ) and abdomen soft; no hepatosplenomegaly Musculoskeletal: no cyanosis or clubbing, extremities motor strength 5/5 Skin: no rashes, warm and dry Neurologic: PERRL, EOMI, accommodation nl, no face palsy, no dysarthria Psychiatric: A+Ox3, euthymic affect Principal Diagnosis Diverticulitis with abscess Discharge Exam General- oriented x 3, not in distress, speaks in sentences with no effort or accessory muscle use Eyes- anicteric Neck- no JVD Lungs-No crackles or wheezing, clear breath sounds, bilaterally Heart- normal rate, regular rhythm; no murmurs Abdomen- normal bowel sounds, nondistended, soft, No tenderness in all quadrants Extremities- no pretibial edema, no calf tenderness Neuro- alert, oriented x 3; no gross focal neurologic deficits Skin- warm & dry Discharge Data Allergies Allergy/AdvReac Type Severity Reaction Status Date / Time No Known Allergies Allergy Unknown Verified 06/28/19 15:37 Consultations 06/28/19 15:11 ED Decision to Admit Stat 06/28/19 17:50 Consult General Surgery Routine Ordered Studies 06/28/19 12:36 CT abd pelvis IV con only Stat ABDOMEN AND PELVIS CT WITH IV CONTRAST CT DOSE: 632.66 mGy.cm HISTORY: Acute generalized abdominal pain abd pain, appy vs diverticulitis TECHNIQUE: Multiaxial CT images of the abdomen and pelvis were performed following the IV administration of 94 cc of Optiray 320, A dose lowering technique was utilized adhering to the principles of ALARA. COMPARISON STUDY: CT abdomen and pelvis 07/08/2018 FINDINGS: Minimal dependent subsegmental bibasilar atelectasis. Trace right pleural effusion. No pneumatosis or pneumoperitoneum. The imaged inferior cardiac chambers are unremarkable. Spleen, adrenal glands, pancreas, gallbladder and liver appear unremarkable. Patency of the hepatic and portal veins. 1.6 cm interpolar right and 6 mm inferior pole left renal hypodensities suggest probable cysts. 2 mm nonobstructing calculus of the inferior pole right kidney. No ureteral calculi or obstructive uropathy. Partial distention of the urinary bladder with mild wall thickening. Hysterectomy. No adnexal mass lesions. Aorta and IVC are unremarkable. No adenopathy. Multiple phleboliths are noted about the pelvis. Mild nonspecific wall thickening of the distal esophagus. No bowel obstruction. There is moderate wall thickening involving a 13 cm segment of mid sigmoid colon with mucosal hyperemia. Colonic diverticuli are also noted within this distribution. Moderate pericolonic inflammation with trace free fluid. There is a small peripherally enhancing fluid collection along the inferior aspect of the mid sigmoid on image 39 series 3, 1.2 x 0.8 cm which courses towards the left aspect of the vaginal cuff. No drainable fluid collection. There are multiple adjacent subcentimeter lymph nodes within the sigmoid mesocolon. Fluid and stool is noted throughout the bowel. Fluid-filled nondilated appendix this likely physiologic. Soft tissues are unremarkable. Bones appear intact. 8 mm sclerotic focus involving the left L2 pedicle is unchanged from comparison. IMPRESSION: 1. 13 cm segment of sigmoid colon demonstrates moderate wall thickening with mucosal hyperemia, moderate surrounding inflammation with trace reactive free fluid. Findings are suggestive of focal colitis, diverticulitis or mucosal neoplasm. Correlation with follow-up colonoscopy recommended. 2. There is a small peripherally enhancing fluid collection interposed between the inflamed sigmoid colon and vaginal cuff measuring up to 1.2 x 0.8 cm suggestive of a small abscess/contained perforation with possible colovaginal fistula. 3. Multiple prominent lymph nodes of the sigmoid mesocolon may be reactive or metastatic. 4. No bowel obstruction, pneumatosis or pneumoperitoneum. 5. Trace right pleural effusion. Hospital Course (1) Diverticulitis of intestine with abscess without bleeding: History of C. difficile colitis Per admitting service notes -Patient presenting by referral to PCPs office for evaluation of abdominal pain -In the ED, CT ABD/pelvis showing 1. 13 cm segment of sigmoid colon demonstrates moderate wall thickening with mucosal hyperemia, moderate surrounding inflammation with trace reactive free fluid. Findings are suggestive of focal colitis, diverticulitis or mucosal neoplasm. Correlation with follow-up colonoscopy recommended. 2. There is a small peripherally enhancing fluid collection interposed between the inflamed sigmoid colon and vaginal cuff measuring up to 1.2 x 0.8 cm suggestive of a small abscess/contained perforation with possible colovaginal fistula. 3. Multiple prominent lymph nodes of the sigmoid mesocolon may be reactive or metastatic. -Hemodynamically stable, labs unremarkable; does not appear septic Evaluated by general surgery Dr. Villanueva Did not recommend surgical intervention Recommend to follow-up with general surgery as outpatient for recurrent diverticulitis Patient was given IV Cipro and Flagyl for 3 days Diet advance slowly Patient improved, remained afebrile, no leukocytosis Tolerated diet well Pain resolved Cleared for discharge today Discharge plan: Augmentin 875 mg every 8 hours x11 days to complete 2 weeks therapy (Augmentin chosen as patient is taking duloxetine which may interact with Cipro) Follow-up with primary care physician this week Repeat CT scan after antibiotic regimen to ensure resolution, also to evaluate prominent lymph nodes which may be reactive or metastatic as noted in the report above. Follow-up with hollow handle knife assembler for colonoscopy in 6 to 8 weeks. Follow-up with general surgery and MOTOR GRADER [employer]OUGH GRADE in 2 weeks. (2) DVT prophylaxis: -SQ LovenoxGiven Disposition Discharge to home Follow-up with physicians as outlined above Patient office close today, patient will be called tomorrow for PCP follow-up schedule Total Time Total Time Spent Total Time Spent (In Minutes): 40 minutes Discharge Plan Discharge Items Patient Disposition: Home - Self-Care Reason For Visit: DIVERTICULITIS W/ABSCESS Discharge Diagnosis: Sigmoid diverticulitis with abscess Activity: Resume your previous activity Driving/Machine Use: No driving when having significant pain or weakness Non-emergency contact: Primary Care Provider Call non-emergency contact if: you have any medication questions, your symptoms worsen, your pain is not controlled, your pain is worsening, your pain is unusual for you, your pain is concerning for you and you have a fever Follow-up/Referrals: Spenser Fuller DO [Primary Care Provider] - Diet: Low Fiber Addtl Attending Provider Instructions: Your new medications are antibiotics: Ciprofloxacin 500 mg twice a day and Flagyl 500 mg 3 times a day x11 days Continue probiotics daily. Drink plenty fluids. Call primary care physician or return to the ER immediately if with worsening of symptoms, including abdominal pain, fevers or chills, nausea, blood in the stools, diarrhea, changes with urine. Follow-up with primary care physician in 3 to 5 days. The clinic will be calling for appointment Follow-up with hollow handle knife assembler for colonoscopy in 6 to 8 weeks. Follow-up with general surgery and MOTOR GRADER [employer] GRADE in 2 weeks. The primary care physician can facilitate the referrals. Pending Studies at Discharge: Yes Studies:: Colonoscopy in 6 to 8 weeks Stand-Alone Forms: Call Back Authorization, [facility], Smoking Cessation Medications and DC Order Prescriptions: New amoxicillin-pot clavulanate [Augmentin] 875-125 mg tablet 1 tab PO Q8H 11 Days Qty: 33 RF: 0 Continued trazodone 50 mg Tablet 75 mg PO HS RF: 0 omeprazole 20 mg Tablet,Delayed Release (Dr/Ec) 20 mg PO QAM RF: 0 cholecalciferol (vitamin D3) [Vitamin D3] 2,000 unit Tablet 2,000 unit PO QAM RF: 0 celecoxib [Celebrex] 100 mg Capsule 200 mg PO DAILY PRN (Reason: Pain) RF: 0 Saccharomyces boulardii 250 mg Capsule 500 mg PO BID RF: 0 valacyclovir [Valtrex] 1 gram Tablet 2,000 mg PO BID PRN (Reason: Cold Sores) RF: 0 duloxetine 30 mg Capsule, Delayed Rel Sprinkle 30 mg PO DAILY RF: 0 Discharge Orders: Discharge Order (Routine); Ordered 07/01/19 Ordered By: Gorge Israel/Other Patient Handouts: Diet Low Residue, Diverticulosis Diverticulitis Admission Data Admit Date/Time: 06/28/19 15:37 Attending Provider: Gorge Garrett Admit Provider: Rufus Rodriguez Primary Care Provider: Spenser Fullre Other Providers: Rufus Rodriguez ; Maurice Villanueva
[2019-07-01 14:19] VITALS: PULSE 66
== END 2019-07-01 14:41 | disposition home or self-care (01) | DRG 392 ==
LOC: ED 12:07 → 3N 15:37 → SUATTDRO 15:37 → 3N 17:17

== ENCOUNTER 2022-11-07 22:39 | Observation (INO) ==
[2022-11-07 23:21] LABS: Basophils # (auto) 0.07 K/uL (0-0.2); Basophils % (auto) 0.9 %; Eosinophils # (auto) 0.24 K/uL (0-0.50); Eosinophils % (auto) 3.2 %; Hematocrit (blood only) 42.8 % (37.0-47.0); Hemoglobin 14.3 g/dl (12.0-16.0); Immature Granulocytes # (auto) 0.01 K/uL (0.01-0.20); Immature Granulocytes % (auto) 0.1 %; Lymphocytes # (auto) 2.71 K/uL (1.2-3.4); Lymphocytes % (auto) 36.3 %; Mean Corpuscular Hgb Conc 33.4 g/dL (32.0-36.0); Mean Corpuscular Volume 89.7 fL (80.0-100.0); Monocytes # (auto) 0.59 K/uL (0.11-0.59); Monocytes % (auto) 7.9 %; Neutrophils # (auto) 3.85 K/uL (1.40-6.50); Neutrophils % (auto) 51.6 %; Platelet Count 253 K/uL (130-400); RDW Coefficient of Variation 12.9 % (11.5-14.5); RDW Standard Deviation 42.3 fL (36.4-46.3); Red Blood Count 4.77 M/uL (4.20-5.40); White Blood Count 7.47 K/ul (4.8-10.8)
[2022-11-07] MEDS ORDERED: SODIUM CHLORIDE 0.9% 1000ML 500 ML IV ONE (23:25)
[2022-11-07 23:26] LABS: Alanine Aminotransferase 14 U/L (7-52); Albumin Globulin Ratio 1.5 (0.9-2); Albumin Level 4.3 gm/dl (3.4-5.0); Alkaline Phosphatase 74 U/L (34-104); Anion Gap 6 (3-11); Aspartate Aminotransferase 18 U/L (13-39); BUN Creatinine Ratio 16.1 (10-20); Bilirubin,Total 0.4 mg/dl (0.2-1.0); Blood Urea Nitrogen 14 mg/dl (6-23); Calcium 10.2 mg/dl (8.6-10.3); Carbon Dioxide 28 mmol/L (21-32); Chloride 109 mmol/L (98-107); Est GFR (African American) 78.8 ml/min; Globulin 2.9 gm/dl (2.5-4.0); Glucose 103 mg/dl (70-99(Fasting)); Potassium 3.7 mmol/L (3.5-5.1); Sodium 143 mmol/L (136-145); Total Protein 7.2 gm/dl (6.0-8.3)
[2022-11-07 23:31] LABS: Troponin I High Sensitivity 4.9 pg/ml (0-14)
--- NOTE | 2022-11-07 23:35 | Emergency Department Note ---
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 Patient had a headache earlier today and feels better now after taking some Advil. Patient states she is healthy with no prior cardiac disease. EMS did an EKG and states it was A-fib. She converted on her own. Patient denies fever, chills, abdominal pain, vomiting, diarrhea. No history of A-fib or a flutter. Home Medications Medication Instructions Recorded Confirmed Type cholecalciferol (vitamin D3) 50 2,000 unit PO QAM 07/08/18 06/28/19 History mcg (2,000 unit) tablet (Vitamin D3) omeprazole 20 mg tablet,delayed 20 mg PO QAM 07/08/18 06/28/19 History release trazodone 50 mg tablet 75 mg PO HS 07/08/18 06/28/19 History Saccharomyces boulardii 250 mg 500 mg PO BID 06/28/19 06/28/19 History capsule celecoxib 100 mg capsule (Celebrex) 200 mg PO DAILY PRN Pain 06/28/19 06/28/19 History duloxetine 30 mg capsule,delayed 30 mg PO DAILY 06/28/19 06/28/19 History release sprinkle valacyclovir 1 gram tablet 2,000 mg PO BID PRN Cold Sores 06/28/19 06/28/19 History (Valtrex) Allergies Allergy/AdvReac Type Severity Reaction Status Date / Time No Known Allergies Allergy Unknown Verified 06/28/19 15:37 Past Med/Surg History Medical History (Updated 11/08/22 @ 00:11 by Nakia Maher PA-C) C. difficile diarrhea Diverticulosis Surgical History Hx of hysterectomy S/P laminectomy Cervical Family History Father Diabetes Social History Smoking Status: Never smoker Hx Alcohol Use: Yes Hx Substance Use: No Preferred Language: Ghanaian Communication Ability: Effective Visual Impairment: No Limitations Hearing Ability: Normal Rn Endocrinology Required: No Beliefs That Will Affect Care: None marital status: Current Living Situation: Spouse current occupational status: employed Feels Safe at Home: Yes Assistive Devices: Glasses Review of Systems A total of 10 systems reviewed and were otherwise negative Physical Exam Vital Signs Vital Signs - 24 hr 11/07/22 22:48 11/07/22 23:40 11/08/22 00:09 Temperature 36.7 C Temperature Source Temporal Artery Scan Pulse Rate 106 H 79 Pulse Rate [Finger] 73 Respiratory Rate 22 20 Respiratory Effort / Characteristics Non-Labored Spontaneous Respiratory Depth Normal Blood Pressure 163/89 H Blood Pressure [Right Arm] 128/65 Blood Pressure Mean 113 Blood Pressure Mean [Right Arm] 86 Pulse Oximetry 97 98 Oxygen Delivery Method Room Air Room Air Sepsis Recent Fever Within 48 Hours No Sepsis New/Unexplained Change in Mental Status No Sepsis Action Taken by Nursing No Action Required VITALS: Vitals are noted on the nurse's note and reviewed by myself. Vital s igns reviewed. GENERAL: Pleasant female, in no acute distress, nondiaphoretic, well-developed well-nourished. SKIN: The skin was without rashes, erythema, edema, or bruising. There is no tenting of the skin. Capillary reflex less than 2 seconds. HEAD: Normocephalic atraumatic. EARS: External auditory canals clear, EYES: Pupils equal round and reactive to light and accommodation. Conjunctivae without injection, sclerae without icterus. Extraocular movements intact. NOSE: Patent, turbinates without inflammation or discharge. MOUTH: Mucous membranes moist. Pharynx without erythema or exudate. Uvula midline. Airway patent. Tongue does not deviate. NECK: Supple without nuchal rigidity. No lymphadenopathy. No thyromegaly. Cervical spine is nontender. No JVD. HEART: Regular rate and rhythm LUNGS: Clear to auscultation bilaterally without wheezes, rales or rhonchi. No retractions or accessory muscle use. ABDOMEN: Positive bowel sounds x 4. Normal tympanic percussion. Soft, nontender, without masses or organomegaly. Childers sign negative. No guarding or rebound tenderness. No CVA tenderness MUSCULOSKELETAL: No muscle atrophy, erythema, or edema noted. NEURO: Patient was alert and oriented to person place and time. Normal sensation to light and sharp touch. No focal neurological deficits. Medical Decision Making Medical Records Attestation: I reviewed the patient's medical records. Home Medications Current Medication List: was personally reviewed by me Laboratory Data Attestation: I reviewed the patient's lab results. 11/07/22 22:55 11/07/22 22:55 Lab Results 11/07/22 11/07/22 11/07/22 Range/Units 22:55 22:55 22:55 WBC 7.47 (4.8-10.8) K/ul RBC 4.77 (4.20-5.40) M/uL Hgb 14.3 (12.0-16.0) g/dl Hct 42.8 (37.0-47.0) % MCV 89.7 (80.0-100.0) fL MCH 30.0 (25.0-34.0) pg MCHC 33.4 (32.0-36.0) g/dL RDW Std Deviation 42.3 (36.4-46.3) fL RDW Coeff of Kal[place] 12.9 (11.5-14.5) % Plt Count 253 (130-400) K/uL MPV 10.0 (9.4-12.4) fL Immature Gran % (Auto) 0.1 % Neut % (Auto) 51.6 % Lymph % (Auto) 36.3 % [place] % (Auto) 7.9 % Eos % (Auto) 3.2 % Baso % (Auto) 0.9 % Neut # (Auto) 3.85 (1.40-6.50) K/uL Lymph # (Auto) 2.71 (1.2-3.4) K/uL [place] # (Auto) 0.59 (0.11-0.59) K/uL Eos # (Auto) 0.24 (0-0.50) K/uL Baso # (Auto) 0.07 (0-0.2) K/uL Immature Gran # (Auto) 0.01 (0.01-0.20) K/uL PT 10.4 (9.0-12.0) Seconds INR 0.9 (0.9-1.1) APTT 25.5 (21.0-31.0) Seconds PTT Ratio 0.9 Sodium 143 (136-145) mmol/L Potassium 3.7 (3.5-5.1) mmol/L Chloride 109 H (98-107) mmol/L Carbon Dioxide 28 (21-32) mmol/L Anion Gap 6 (3-11) BUN 14 (6-23) mg/dl Creatinine 0.87 (0.6-1.2) mg/dl Est Cr Clr Drug Dosing Not Reportable Est GFR ( Amer) 78.8 ml/min Est GFR (Non-Af Amer) 68.0 ml/min BUN/Creatinine Ratio 16.1 (10-20) Glucose 103 H (70-99(Fasting)) mg/dl Calcium 10.2 (8.6-10.3) mg/dl Magnesium 1.9 (1.7-2.4) mg/dl Total Bilirubin 0.4 (0.2-1.0) mg/dl AST 18 (13-39) U/L ALT 14 (7-52) U/L Alkaline Phosphatase 74 (34-104) U/L Troponin I High Sens 4.9 (0-14) pg/ml Total Protein 7.2 (6.0-8.3) gm/dl Albumin 4.3 (3.4-5.0) gm/dl Globulin 2.9 (2.5-4.0) gm/dl Albumin/Globulin Ratio 1.5 (0.9-2) SARS-CoV-2, RNA, NAAT (NEGATIVE) 11/07/22 Range/Units 23:32 WBC (4.8-10.8) K/ul RBC (4.20-5.40) M/uL Hgb (12.0-16.0) g/dl Hct (37.0-47.0) % MCV (80.0-100.0) fL MCH (25.0-34.0) pg MCHC (32.0-36.0) g/dL RDW Std Deviation (36.4-46.3) fL RDW Coeff of [place] (11.5-14.5) % Plt Count (130-400) K/uL MPV (9.4-12.4) fL Immature Gran % (Auto) % Neut % (Auto) % Lymph % (Auto) % [place] % (Auto) % Eos % (Auto) % Baso % (Auto) % Neut # (Auto) (1.40-6.50) K/uL Lymph # (Auto) (1.2-3.4) K/uL [place] # (Auto) (0.11-0.59) K/uL Eos # (Auto) (0-0.50) K/uL Baso # (Auto) (0-0.2) K/uL Immature Gran # (Auto) (0.01-0.20) K/uL PT (9.0-12.0) Seconds INR (0.9-1.1) APTT (21.0-31.0) Seconds PTT Ratio Sodium (136-145) mmol/L Potassium (3.5-5.1) mmol/L Chloride (98-107) mmol/L Carbon Dioxide (21-32) mmol/L Anion Gap (3-11) BUN (6-23) mg/dl Creatinine (0.6-1.2) mg/dl Est Cr Clr Drug Dosing Est GFR ( Amer) ml/min Est GFR (Non-Af Amer) ml/min BUN/Creatinine Ratio (10-20) Glucose (70-99(Fasting)) mg/dl Calcium (8.6-10.3) mg/dl Magnesium (1.7-2.4) mg/dl Total Bilirubin (0.2-1.0) mg/dl AST (13-39) U/L ALT (7-52) U/L Alkaline Phosphatase (34-104) U/L Troponin I High Sens (0-14) pg/ml Total Protein (6.0-8.3) gm/dl Albumin (3.4-5.0) gm/dl Globulin (2.5-4.0) gm/dl Albumin/Globulin Ratio (0.9-2) SARS-CoV-2, RNA, NAAT NEGATIVE (NEGATIVE) Imaging Data Attestation: I personally reviewed and interpreted this imaging study as follows: MDM Narrative Prior records/ancillary studies reviewed. Triage Nursing notes reviewed. Additional history obtained from family. The patient's history was concerning for chest pain. Differential diagnosis: Etiologies such as A-fib, a flutter, dysrhythmia, cardiac ischemia, aortic dissection, pulmonary embolism, pneumonia, pneumothorax, musculoskeletal, infections, pericarditis, myocarditis, esophageal rupture, gastrointestinal, as well as others were entertained. Physical examination: As above. ER treatment provided: An order was placed for continuous cardiac monitoring. The monitor shows a rate of 60-1 50 with a sinus rhythm per my interpretation. IV fluids On reassessment the patient felt better. Diagnostic interpretation by me: The electrocardiogram was negative for pathologic change. Order for chest pain EKG: Normal sinus, normal intervals, minimal ST depression in the lateral leads, rate of 79. Impression normal sinus rhythm with minimal ST depression lateral leads independent interpreted by myself I think arrhythmia is unlikely. EKG shows normal sinus rhythm with no interval abnormalities such as QT prolongation or WPW. There are no findings to suggest Brugada syndrome. Cardiac monitoring in the emergency department reveals no tachycardic or bradycardic dysrhythmia. Hypertrophic cardiomyopathy was considered but there are no clear historical elements pointing toward this. EKG is not suggestive. The QRS voltage is not extremely large and there are no suggestive Q waves. EKG done outpatient by EMS is concerning for A-fib with RVR rate of 151 per my independent interpretation The labs Independently Interpreted by myself revealed negative troponin and repeat was ordered Imaging studies: Chest x-ray with no acute consolidation, pneumothorax or free air per my independent interpretation HEART SCORE: Hx: high/mod/low suspicion: 1 ECG: ST depression/nonspecific changes/normal: 1 Age: Greater than 65/45-64/less than 45: 2 Risk factors: (Hypertension, hyperlipidemia, diabetes, coronary disease, tobacco use, cocaine use): 1 Troponin: Greater than 2 times normal limits/1-2 times normal limits/normal: 0 Total: 5 CHADS2 Score Congestive HF (1): 0 Hypertension (1) :0 Age >75 years (1) :0 Diabetes mellitus (1):0 Stroke/TIA/TE (2): 0 Score: 0 CHADS2 Unadjusted ischemic stroke rate (% per year) 0: 0.6% 1: 3.0% 2: 4.2% 3: 7.1% 4: 11.1% 5: 12.5% 6: 13.0% Consultation: A consultation was placed with the hospitalist. The case was discussed and diagnostics were reviewed. The patient was evaluated in the ER for further treatment. Exam and history seem consistent with new onset A-fib with RVR. Patient converted on her own. Labs and diagnostics are in for interpreted by myself. Medicine is consulted. She will be evaluated for admission. By the evaluation outlined above emergent etiologies such as aortic dissection, pulmonary embolism, pneumonia, pneumothorax, infections, pericarditis, myocarditis, gastrointestinal, as well as others were deemed relatively unlikely. The pt informed about the findings as listed above. All questions were answered and pleased with the treatment. The chart was completed utilizing [employer] Speech voice recognition software. Grammatical errors, random word insertions, pronoun errors, and incomplete sent ences are an occassional consequence of this system due to software limitations, ambient noise, and hardware issues. Any formal questions or concerns about the content, text, or information contained within the body of this dictation should be directly addressed to the physician human resources benefits assistant for clarification. Impression & Plan New onset a-fib Discharge Plan Visit Data Chief Complaint: Cardiac Assessment Stated Complaint: NEW ONSET A-FIB ED Provider: Maurice Rascon ED Midlevel Provider: Nakia Maher Discharge Problem: New onset a-fib Patient Disposition: Admitted As Inpatient Condition: Good Forms Stand Alone Forms: [employer] Prescriptions Prescriptions: No Action trazodone 50 mg Tablet 75 mg PO HS omeprazole 20 mg Tablet,Delayed Release (Dr/Ec) 20 mg PO QAM cholecalciferol (vitamin D3) [Vitamin D3] 2,000 unit Tablet 2,000 unit PO QAM celecoxib [Celebrex] 100 mg Capsule 200 mg PO DAILY PRN (Reason: Pain) Saccharomyces boulardii 250 mg Capsule 500 mg PO BID valacyclovir [Valtrex] 1 gram Tablet 2,000 mg PO BID PRN (Reason: Cold Sores) duloxetine 30 mg Capsule, Delayed Rel Sprinkle 30 mg PO DAILY Referrals Referrals: Spenser Fuller DO [Primary Care Provider] -
[2022-11-07 23:43] LABS: INR 0.9 (0.9-1.1); Partial Thromboplastin Ratio 0.9; Partial Thromboplastin Time 25.5 Seconds (21.0-31.0); Prothrombin Time 10.4 Seconds (9.0-12.0)
[2022-11-07 23:57] LABS: Magnesium 1.9 mg/dl (1.7-2.4)
[2022-11-08] MEDS ORDERED: POTASSIUM CHLORIDE CRTAB 20 MEQ TABCR PO STA (00:17)
[2022-11-08] MEDS ORDERED: MAGNESIUM SULFATE / D5W 1 GM/100 ML BAG IV ONE (00:17)
[2022-11-08] MEDS ORDERED: NSS + 20MEQ KCL 20 MEQ/1,000 ML BAG IV ONE (00:18)
[2022-11-08 00:33] LABS: Thyroid Stimulating Hormone 4.581 uIu/ml (0.300-4.500)
[2022-11-08 01:21] LABS: T4 Free Thyroxine 0.81 ng/dl (0.61-1.60)
[2022-11-08] MEDS ORDERED: METOPROLOL TARTRATE 25 MG TAB PO STA (03:38)
--- NOTE | 2022-11-08 03:38 | History & Physical Report ---
Date of Service November 08, 2022 Assessment & Plan (1) AF (paroxysmal atrial fibrillation): Plan: Patient currently NSR. 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 It may contain grammatical or spelling errors. Kindly contact undersigned for clarification of any documentation item in question. History of Present Illness Chief Complaint: Chest pain, palpitations, A-fib Primary Care Provider: Spenser Fuller DO History obtained from patient and records. Medical history significant for hypertension, hyperlipidemia, GERD, migraine, primary hyperparathyroidism, mood disorder. Last confinement 2019 for complicated diverticulitis. Patient was getting ready for bed last night when she experienced pressure-like substernal pain associated with palpitations/thumping heart sensation. No cough, no SOB. Transient headache symptoms. Patient called EMS. A-fib noted on EKG. Spontaneous conversion to NSR en route to hospital. Patient currently comfortable. Medical History as above Surgical History : Foot/toe surgery, partial colectomy for recurrent diverticulitis, cataract surgery, neck surgery, vaginal hysterectomy Family History : Heart disease, dementia, sarcoidosis, thyroid disease Personal/Social history : Past tobacco abuse, no EtOH intake, CVI M nurse Allergies Allergy/AdvReac Type Severity Reaction Status Date / Time No Known Allergies Allergy Unknown Verified 06/28/19 15:37 Home Medications Medication Instructions Recorded Confirmed Type cholecalciferol (vitamin D3) 50 2,000 unit PO QAM 07/08/18 11/08/22 History mcg (2,000 unit) tablet (Vitamin D3) omeprazole 20 mg tablet,delayed 20 mg PO QAM 07/08/18 11/08/22 History release trazodone 50 mg tablet 75 mg PO HS PRN Sleep 07/08/18 11/08/22 History duloxetine 60 mg capsule,delayed 60 mg PO DAILY 11/08/22 11/08/22 History release sprinkle naproxen sodium 220 mg tablet 220 mg PO AMPM 11/08/22 11/08/22 History rosuvastatin 20 mg tablet 20 mg PO DAILY 11/08/22 11/08/22 History Past Med/Surg History Medical History (Updated 11/08/22 @ 07:29 by Gamaliel Leos MD) C. difficile diarrhea Diverticulosis Surgical History Hx of hysterectomy S/P laminectomy Cervical Family History Father Diabetes Social History Smoking Status: Former smoker Hx Alcohol Use: Yes Alcohol type: wine Hx Substance Use: No Preferred Language: Kyrgyz Communication Ability: Effective Visual Impairment: No Limitations Hearing Ability: Normal Territory Sales Representative Required: No Beliefs That Will Affect Care: None marital status: Current Living Situation: Spouse current occupational status: employed Other Information That Helps Us Care for You: No Feels Safe at Home: Yes Safety Concerns: Feels Safe At This Time Assistive Devices: Glasses Review of Systems Review of Systems: As per HPI, all other systems reviewed and negative Physical Exam Physical Exam: GENERAL: Comfortable, pleasant, looks younger than stated age, no respiratory distress SKIN: Normal color, warm HEENT: [place] palpebral conjunctivae, no ptosis, moist buccal mucosa NECK : Supple, no tenderness CHEST : CTA, no tenderness HEART : RRR, no obvious murmurs ABDOMEN: Some distention, nontender EXTREMITIES : No LE swelling/tenderness, no other conspicuous deformities noted NEUROLOGIC : Coherent, no facial asymmetry, no other gross focality Results & Data Results & Data Vital Signs (Past 12 Hours) Vital Signs Temp Pulse Pulse Resp BP BP Pulse Ox 11/08/22 02:04 67 20 95 11/08/22 00:09 73 20 128/65 98 11/07/22 23:40 79 11/07/22 22:48 36.7 C 106 H 22 163/89 H 97 O2 Del Method 11/08/22 02:04 Room Air 11/08/22 00:09 Room Air 11/07/22 23:40 11/07/22 22:48 Room Air Laboratory Results Laboratory Results WBC 7.47 K/ul (4.8-10.8) 11/07/22 22:55 RBC 4.77 M/uL (4.20-5.40) 11/07/22 22:55 Hgb 14.3 g/dl (12.0-16.0) 11/07/22 22:55 Hct 42.8 % (37.0-47.0) 11/07/22 22: MCV 89.7 fL (80.0-100.0) 11/07/22 22: MCH 30.0 pg (25.0-34.0) 11/07/22 22: MCHC 33.4 g/dL (32.0-36.0) 11/07/22 22: RDW Std Deviation 42.3 fL (36.4-46.3) 11/07/22 22: RDW Coeff of Kalen 12.9 % (11.5-14.5) 11/07/22 22: Plt Count 253 K/uL (130-400) 11/07/22 22: MPV 10.0 fL (9.4-12.4) 11/07/22 22:55 Immature Gran % (Auto) 0.1 % 11/07/22 22: Neut % (Auto) 51.6 % 11/07/22 22:55 Lymph % (Auto) 36.3 % 11/07/22 22:55 [place] % (Auto) 7.9 % 11/07/22 22: Eos % (Auto) 3.2 % 11/07/22 22: Baso % (Auto) 0.9 % 11/07/22 22: Neut # (Auto) 3.85 K/uL (1.40-6.50) 11/07/22 22: Lymph # (Auto) 2.71 K/uL (1.2-3.4) 11/07/22 22:55 [place] # (Auto) 0.59 K/uL (0.11-0.59) 11/07/22 22:55 Eos # (Auto) 0.24 K/uL (0-0.50) 11/07/22 22: Baso # (Auto) 0.07 K/uL (0-0.2) 11/07/22 22:55 Immature Gran # (Auto) 0.01 K/uL (0.01-0.20) 11/07/22 22: PT 10.4 Seconds (9.0-12.0) 11/07/22 22:55 INR 0.9 (0.9-1.1) 11/07/22 22:55 APTT 25.5 Seconds (21.0-31.0) 11/07/22 22:55 PTT Ratio 0.9 11/07/22 22:55 Sodium 143 mmol/L (136-145) 11/07/22 22:55 Potassium 3.7 mmol/L (3.5-5.1) 11/07/22 22:55 Chloride 109 mmol/L (98-107) H 11/07/22 22:55 Carbon Dioxide 28 mmol/L (21-32) 11/07/22 22:55 Anion Gap 6 (3-11) 11/07/22 22:55 BUN 14 mg/dl (6-23) 11/07/22 22:55 Creatinine 0.87 mg/dl (0.6-1.2) 11/07/22 22:55 Est Cr Clr Drug Dosing Not Reportable 11/07/22 22:55 Est GFR ( Amer) 78.8 ml/min 11/07/22 22:55 Est GFR (Non-Af Amer) 68.0 ml/min 11/07/22 22:55 BUN/Creatinine Ratio 16.1 (10-20) 11/07/22 22:55 Glucose 103 mg/dl (70-99(Fasting)) H 11/07/22 22:55 Calcium 10.2 mg/dl (8.6-10.3) 11/07/22 22:55 Magnesium 1.9 mg/dl (1.7-2.4) 11/07/22 22:55 Total Bilirubin 0.4 mg/dl (0.2-1.0) 11/07/22 22:55 AST 18 U/L (13-39) 11/07/22 22:55 ALT 14 U/L (7-52) 11/07/22 22:55 Alkaline Phosphatase 74 U/L (34-104) 11/07/22 22:55 Troponin I High Sens 4.9 pg/ml (0-14) 11/07/22 22:55 Total Protein 7.2 gm/dl (6.0-8.3) 11/07/22 22:55 Albumin 4.3 gm/dl (3.4-5.0) 11/07/22 22:55 Globulin 2.9 gm/dl (2.5-4.0) 11/07/22 22:55 Albumin/Globulin Ratio 1.5 (0.9-2) 11/07/22 22:55 TSH 4.581 uIu/ml (0.300-4.500) H 11/07/22 22:55 Free T4 0.81 ng/dl (0.61-1.60) 11/07/22 22:55 SARS-CoV-2, RNA, NAAT NEGATIVE (NEGATIVE) 11/07/22 23:32 Diagnostic Findings Chest x-ray As per my interpretation atelectasis EKG as per my interpretation : Rate 80, NSR, normal axis, T wave flattening lateral and septal leads
[2022-11-08 04:39] LABS: Basophils # (auto) 0.05 K/uL (0-0.2); Basophils % (auto) 0.9 %; Eosinophils # (auto) 0.17 K/uL (0-0.50); Hematocrit (blood only) 38.7 % (37.0-47.0); Hemoglobin 12.8 g/dl (12.0-16.0); Immature Granulocytes # (auto) 0.01 K/uL (0.01-0.20); Immature Granulocytes % (auto) 0.2 %; Lymphocytes # (auto) 1.94 K/uL (1.2-3.4); Lymphocytes % (auto) 33.9 %; Mean Corpuscular Hgb Conc 33.1 g/dL (32.0-36.0); Mean Corpuscular Volume 90.6 fL (80.0-100.0); Mean Platelet Volume 9.9 fL (9.4-12.4); Monocytes % (auto) 8.7 %; Neutrophils # (auto) 3.06 K/uL (1.40-6.50); Neutrophils % (auto) 53.3 %; Platelet Count 227 K/uL (130-400); RDW Standard Deviation 42.6 fL (36.4-46.3); Red Blood Count 4.27 M/uL (4.20-5.40); White Blood Count 5.73 K/ul (4.8-10.8)
[2022-11-08 04:52] LABS: Anion Gap 3 (3-11); BUN Creatinine Ratio 19.8 (10-20); Blood Urea Nitrogen 16 mg/dl (6-23); Calcium 9.2 mg/dl (8.6-10.3); Carbon Dioxide 28 mmol/L (21-32); Chloride 109 mmol/L (98-107); Est GFR (African American) 85.9 ml/min; Est GFR (Non-African American) 74.1 ml/min; Glucose 99 mg/dl (70-99(Fasting)); Potassium 4.4 mmol/L (3.5-5.1); Sodium 140 mmol/L (136-145)
[2022-11-08] MEDS ORDERED: NITROGLYCERIN SL 0.4 MG/TAB TAB SL PRN (05:00)
[2022-11-08] MEDS ORDERED: traMADol HCL 50 MG TABLET PO PRN (05:00)
[2022-11-08] MEDS ORDERED: PROMETHAZINE HCL 12.5 MG in SODIUM CHLORIDE 0.9% 50 ML IV PRN (05:00)
[2022-11-08] MEDS ORDERED: ACETAMINOPHEN 325 MG TAB PO PRN (05:00)
[2022-11-08] MEDS ORDERED: traZODone HCL 50 MG TAB PO PRN (05:00)
[2022-11-08] MEDS ORDERED: LORazepam 0.5 MG TAB PO PRN (05:00)
[2022-11-08 05:06] LABS: D Dimer 350 ug/L FEU (0-500)
[2022-11-08 05:08] LABS: Partial Thromboplastin Ratio 0.9; Partial Thromboplastin Time 26.1 Seconds (21.0-31.0)
[2022-11-08] MEDS ORDERED: Patient's HEIGHT &/or WEIGHT Needed ONE (05:30)
--- NOTE | 2022-11-08 07:18 | XRay Report ---
SINGLE VIEW CHEST CLINICAL HISTORY: Atypical chest pain. FINDINGS: An AP, portable, upright chest radiograph is compared to study dated 12/24/2010. The cardiom ediastinal silhouette is unremarkable. The lungs and pleural spaces are clear noting mild bibasilar a telectasis. No pneumothorax is seen. The skeletal structures are osteopenic. The bony thorax is gross ly intact. Fusion hardware is noted in the lower cervical spine. IMPRESSION: No active disease in the chest. ACT 112: Negative or not required by law. Electronically signed by: Ernie Shook M.D. 11/08/2022 7:16 AM
--- NOTE | 2022-11-08 08:43 | Cardiology Consultation ---
Date of Consultation November 08, 2022 Assessment & Plan (1) AF (paroxysmal atrial fibrillation): Plan IMPRESSION: 67 year old female with no prior cardiac history. New onset symptomatic PAF. CHAsDS2-VASc score of 2 (age, female). Maintaining NSR on tele with rates in the 50-60s. PLAN: 1. Continue metoprolol tartrate 12.5 mg twice daily while inpatient- recommend transitioning to metoprolol SUCCINATE 25 mg daily at discharge. 2. Discussed risk vs. benefit of stroke in regards to PAF- recommend starting Eliquis 5 mg BID, will consult case management regarding cost. 3. Consider zio monitor as an outpatient to determine need for nursing home anticoagulation with recurrent PAF/burden and assess average heart rates. 4. Further recommendations pending echo results. Case discussed with Dr. Santa. Supervising Physician Co-Signing Physician Notes Patient was seen and personally examined. She presented with sudden onset of tachypalpitations and heart pounding with transient A-fib flutter noted during ambulance transfer with spontaneous conversion to sinus rhythm. No further arrhythmias overnight. Echocardiogram with preserved wall motion and LV systolic function with grade 1 diastolic dysfunction and no valvular disease Discussed findings in detail with patient including options for intervention. We will transition IV heparin to Eliquis Discharge on beta-teena with metoprolol succinate 25 mg daily. Additional options of antiarrhythmic therapies and invasive procedures/ablation also discussed but not indicated at this time History of Present Illness Reason for Consultation: Paroxysmal atrial fibrillation [facility] Attending Physician: Bj Duffy MD History of Present Illness 67-year-old female who presented to the emergency department via EMS due to palpitations described as a pressure-like substernal chest pain/thumping heart sensation. She is a retired RN (previously worked in ICU/PCU), now works parts advisor doing quality and safety. Yesterday she was at a family picnic- admits to one [place] during the day, but not too much water. [place] a little dry on her way home and developed a head ache.Took an Advil and drank some water. Got ready for bed, started reading and developed a mid sternal chest pain sensation accompanied by a thudding/pounding heart beat sensation. [place] "jittery". No chest pain or shortness of breath. Mild lightheadedness. Called 911. EKG done en route should AFIB/Flutter with RVR with spontaneous conversion to normal sinus rhythm. This is a new diagnosis for her. Blood work was unremarkable, Including high-sensitivity troponins negative x2. TSH is mildly elevated with a normal free T4. Renal function and electrolytes stable. No prior cardiac history. Remote history of tobacco use. Social alcohol use. Lives a rather sedentary life- enjoys quiet activities like reading. However, able to perform ADLS without difficultly. 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 GERD Diverticulitis History of migraine Hyperlipidemia, on rosuvastatin Allergies Allergy/AdvReac Type Severity Reaction Status Date / Time No Known Allergies Allergy Unknown Verified 06/28/19 15:37 Home Medications Medication Instructions Recorded Confirmed Type cholecalciferol (vitamin D3) 50 2,000 unit PO QAM 07/08/18 11/08/22 History mcg (2,000 unit) tablet (Vitamin D3) omeprazole 20 mg tablet,delayed 20 mg PO QAM 07/08/18 11/08/22 History release trazodone 50 mg tablet 75 mg PO HS PRN Sleep 07/08/18 11/08/22 History apixaban 5 mg tablet (Eliquis) 5 mg PO BID #60 tabs 11/08/22 Rx duloxetine 60 mg capsule,delayed 60 mg PO DAILY 11/08/22 11/08/22 History release sprinkle metoprolol succinate 25 mg capsule 25 mg PO DAILY #30 ea 11/08/22 Rx sprinkle, ext. release 24 hr naproxen sodium 220 mg tablet 220 mg PO AMPM 11/08/22 11/08/22 History rosuvastatin 20 mg tablet 20 mg PO DAILY 11/08/22 11/08/22 History Patient History Medical History C. difficile diarrhea Diverticulosis Surgical History Hx of hysterectomy S/P laminectomy Cervical Family History Father Diabetes Social History Smoking Status: Former smoker Hx Alcohol Use: Yes Alcohol type: wine Hx Substance Use: No Preferred Language: Nepali Communication Ability: Effective Visual Impairment: No Limitations Hearing Ability: Normal Maternity Nurse Required: No Beliefs That Will Affect Care: None marital status: Current Living Situation: Spouse current occupational status: employed Other Information That Helps Us Care for You: No Feels Safe at Home: Yes Safety Concerns: Feels Safe At This Time Assistive Devices: Glasses Review of Systems Review of Systems: All systems reviewed & are unremarkable except as noted in HPI & below Physical Exam Constitutional: WD/WN, vitals as above no acute distress Eyes: PERRL, conjunctivae normal, anicteric sclerae Neck: normal visual inspection and trachea midline Respiratory: normal respiratory effort, lungs clear to auscultation Cardiovascular: RRR, no murmur, no edema Heart Sounds: normal S1 and normal S2; no murmur Vessels: no JVD Extremities: no edema Gastrointestinal (Abdomen): normal bowel sounds, soft, nontender, no hepatosplenomegaly Skin: no rashes, warm and dry Psychiatric: A+Ox3, euthymic affect Results & Data Vital Signs (Past 12 Hours) Vital Signs Temp Pulse Pulse Resp BP BP Pulse Ox 11/08/22 08:23 36.9 C 52 L 17 128/72 97 11/08/22 04:55 61 11/08/22 04:55 11/08/22 04:55 36.4 C L 60 18 133/81 98 11/08/22 03:40 64 11/08/22 02:04 67 20 95 11/08/22 00:09 73 20 128/65 98 11/07/22 23:40 79 11/07/22 22:48 36.7 C 106 H 22 163/89 H 97 O2 Del Method 11/08/22 08:23 Room Air 11/08/22 04:55 11/08/22 04:55 Room Air 11/08/22 04:55 Room Air 11/08/22 03:40 11/08/22 02:04 Room Air 11/08/22 00:09 Room Air 11/07/22 23:40 11/07/22 22:48 Room Air Laboratory Results Cardiac Enzymes 11/07/22 11/08/22 Range/Units 22:55 04:02 AST 18 (13-39) U/L Troponin I High Sens 4.9 11.3 D (0-14) pg/ml Coagulation 11/07/22 11/08/22 Range/Units 22:55 04:02 PT 10.4 (9.0-12.0) Seconds APTT 25.5 26.1 (21.0-31.0) Seconds CBC 11/07/22 11/08/22 Range/Units 22:55 04:02 WBC 7.47 5.73 (4.8-10.8) K/ul RBC 4.77 4.27 (4.20-5.40) M/uL Hgb 14.3 12.8 (12.0-16.0) g/dl Hct 42.8 38.7 (37.0-47.0) % Plt Count 253 227 (130-400) K/uL Neut # (Auto) 3.85 3.06 (1.40-6.50) K/uL Lymph # (Auto) 2.71 1.94 (1.2-3.4) K/uL Hayes # (Auto) 0.59 0.50 (0.11-0.59) K/uL Eos # (Auto) 0.24 0.17 (0-0.50) K/uL Baso # (Auto) 0.07 0.05 (0-0.2) K/uL Comprehensive Metabolic Panel 11/07/22 11/08/22 Range/Units 22:55 04:02 Sodium 143 140 (136-145) mmol/L Potassium 3.7 4.4 (3.5-5.1) mmol/L Chloride 109 H 109 H (98-107) mmol/L Carbon Dioxide 28 28 (21-32) mmol/L BUN 14 16 (6-23) mg/dl Creatinine 0.87 0.81 (0.6-1.2) mg/dl Glucose 103 H 99 (70-99(Fasting)) mg/dl Calcium 10.2 9.2 (8.6-10.3) mg/dl AST 18 (13-39) U/L ALT 14 (7-52) U/L Alkaline Phosphatase 74 (34-104) U/L Total Protein 7.2 (6.0-8.3) gm/dl Albumin 4.3 (3.4-5.0) gm/dl Intake and Output 05/14/23 05/15/23 05/15/23 22:59 06:59 14:59 Intake Total 100 / 100 360 / 360 Balance 100 / 100 360 / 360 Intake: IV 100 / 100 Magnesium Sulfate / D5w 1 gm In 100 / 100 100 ml @ 50 mls/hr IV ONE ONE Rx#:[id number] Oral 360 / 360 Other: # Unmeasured Voids 1 Weight 81.692 kg Weight Measurement Method Built in [facility] Diagnostic Findings ECHO 11/08/2022 PENDING*
--- NOTE | 2022-11-08 08:49 | Electrocardiogram Report ---
Test Reason : Blood Pressure : / mmHG Vent. Rate : 079 BPM Atrial Rate : 079 BPM P-R Int : 160 ms QRS Dur : 076 ms QT Int : 358 ms P-R-T Axes : 064 037 083 degrees QTc Int : 410 ms Normal sinus rhythm Nonspecific ST and T wave abnormality Abnormal ECG When compared with ECG of 28-JUN-2019 13:06, Nonspecific T wave abnormality no longer evident in Inferior leads Confirmed by Doni Villa ([id number]) on 11/08/2022 8:49:01 AM Referred By: REFERRED SELF Confirmed By:Be Villa
[2022-11-08] MEDS ORDERED: ROSUVASTATIN CALCIUM 20 MG TAB PO SCH (09:00)
[2022-11-08] MEDS ORDERED: ENOXAPARIN INJ 40 MG/0.4 ML SYR SQ SCH (09:00)
[2022-11-08] MEDS ORDERED: DULoxetine HCL 60 MG CAP PO SCH (09:00)
[2022-11-08] MEDS ORDERED: PANTOprazole 40 MG TAB PO SCH (09:00)
[2022-11-08] MEDS ORDERED: APIXABAN 5 MG TABLET PO SCH (10:00)
--- NOTE | 2022-11-08 13:26 | Communication Note ---
Date of Service: November 08, 2022 Patient seen and examined at bedside. She is comfortable; not in distress. Telemetry shows sinus rhythm with sinus bradycardia. Cardiology note appreciated; recommend metoprolol and Eliquis. Eliquis prescription sent; Continue to monitor on telemetry. Constitutional: WD/WN, vitals as above, NAD, sitting up in bed, pleasant, conversing easily Respiratory: normal respiratory effort, lungs clear to auscultation, no wheeze, rales, rhonchi. Normal insp/exp effort, no accessory muscle use Cardiovascular: RRR, no murmur, no edema Vessels: no JVD or carotid bruit Chest: normal inspection of chest Abdomen: normal bowel sounds, soft, nontender, no hepatosplenomegaly Musculoskeletal: no cyanosis or clubbing, extremities motor strength 5/5 Skin: no rashes, warm and dry normal turgor Neurologic: Grossly intact Psychiatric: A+Ox3, euthymic affect Lymphatic: no cervical or axillary lymphadenopathy : deferred
--- NOTE | 2022-11-08 16:08 | Discharge Summary ---
Date of Service November 08, 2022 Admission HPI Per Admitting Provider History obtained from patient and records. Medical history significant for hypertension, hyperlipidemia, GERD, migraine, primary hyperparathyroidism, mood disorder. Last confinement 2019 for complicated diverticulitis. Patient was getting ready for bed last night when she experienced pressure-like substernal pain associated with palpitations/thumping heart sensation. No cough, no SOB. Transient headache symptoms. Patient called EMS. A-fib noted on EKG. Spontaneous conversion to NSR en route to hospital. Patient currently comfortable. Medical History as above Surgical History : Foot/toe surgery, partial colectomy for recurrent diverticulitis, cataract surgery, neck surgery, vaginal hysterectomy Family History : Heart disease, dementia, sarcoidosis, thyroid disease Personal/Social history : Past tobacco abuse, no EtOH intake, CVI M nurse Admission Exam Per Admitting Provider GENERAL: Comfortable, pleasant, looks younger than stated age, no respiratory distress SKIN: Normal color, warm HEENT: [place] palpebral conjunctivae, no ptosis, moist buccal mucosa NECK : Supple, no tenderness CHEST : CTA, no tenderness HEART : RRR, no obvious murmurs ABDOMEN: Some distention, nontender EXTREMITIES : No LE swelling/tenderness, no other conspicuous deformities noted NEUROLOGIC : Coherent, no facial asymmetry, no other gross focality Principal Diagnosis Paroxysmal A-fib with RVR, spontaneously converted to normal sinus rhythm Discharge Exam Constitutional: WD/WN, vitals as above, NAD, sitting up in bed, pleasant, conversing easily Respiratory: normal respiratory effort, lungs clear to auscultation, no wheeze, rales, rhonchi. Normal insp/exp effort, no accessory muscle use Cardiovascular: RRR, no murmur, no edema Vessels: no JVD or carotid bruit Chest: normal inspection of chest Abdomen: normal bowel sounds, soft, nontender, no hepatosplenomegaly Musculoskeletal: no cyanosis or clubbing, extremities motor strength 5/5 Skin: no rashes, warm and dry normal turgor Neurologic: PERRL, EOMI, accommodation nl, no face palsy, no dysarthria CN's II- XI intact bilaterally and moves all extremities Psychiatric: A+Ox3, euthymic affect Lymphatic: no cervical or axillary lymphadenopathy : deferred Discharge Data Allergies Allergy/AdvReac Type Severity Reaction Status Date / Time No Known Allergies Allergy Unknown Verified 06/28/19 15:37 Consultations 11/07/22 23:44 ED Decision to Admit Stat 11/08/22 05:00 Consult Cardiology Routine Hospital Course (1) AF (paroxysmal atrial fibrillation): Patient is a 67-year-old female with past medical history of hyperlipidemia who presented to the ED with chest discomfort for 1 hour During the EMS, she was found to be in A-fib with RVR. She converted to normal sinus rhythm spontaneously on arrival to ED. High sensitive troponin was negative. Echocardiogram was done which showed EF of 60 to 65% with grade 1 diastolic dysfunction. No significant valvular disease. Cardiology consultation was done. Patient continued to remain in normal sinus rhythm throughout the hospitalization. She was discharged on metoprolol succinate 25 mg once daily and Eliquis as per recommendation by cardiology. She will follow-up with cardiology and PCP. Total Time Total Time Spent Total Time Spent (In Minutes): 45 Total Time Includes: Examination of the Patient, Discharge Planning, Medication Reconciliation, Communication With Other Providers and Other Discharge Plan Discharge Items Patient Disposition: Home - Self-Care Reason For Visit: PAF Discharge Diagnosis: A-fib with RVR Condition on Discharge: Good Activity: Resume your previous activity Non-emergency contact: Primary Care Provider Call non-emergency contact if: you have any medication questions and your symptoms worsen Follow-up/Referrals: Spenser Fuller DO [Primary Care Provider] - (Date & Time 11/12/2022 11:20 AM Provider Solo Giraldo DO Department Family Practice [facility] ) Diet: Regular Addtl Attending Provider Instructions: You were admitted to the hospital after an episode of irregular heart rhythm called atrial fibrillation. You are prescribed metoprolol 25 mg to be taken once daily. You were also prescribed Eliquis to be taken twice daily. You will receive a call from cardiology office with an appointment. An appointment with your primary care doctor is also set up. Pending Studies at Discharge: No Stand-Alone Forms: My [employer], Smoking Cessation Medications and DC Order Prescriptions: New Eliquis 5 mg Tablet 5 mg PO BID Qty: 60 0RF metoprolol succinate 25 mg capsule,sprinkle,ER 24hr 25 mg PO DAILY Qty: 30 0RF Continued trazodone 50 mg Tablet 75 mg PO HS PRN (Reason: Sleep) omeprazole 20 mg Tablet,Delayed Release (Dr/Ec) 20 mg PO QAM cholecalciferol (vitamin D3) [Vitamin D3] 2,000 unit Tablet 2,000 unit PO QAM rosuvastatin 20 mg Tablet 20 mg PO DAILY duloxetine 60 mg Capsule, Delayed Rel Sprinkle 60 mg PO DAILY naproxen sodium 220 mg Tablet 220 mg PO AMPM Rx Instructions: take with meals Discharge Orders: Discharge Order (Routine); Ordered 11/08/22 Ordered By: Bj Duffy Admission Data Admit Date/Time: 11/08/22 03:40 Attending Provider: Bj Duffy Admit Provider: Gamaliel Leos Primary Care Provider: Spenser Fuller Other Providers: Gamaliel Leos ; Lainey Barksdale ; Bryon Srivastava ; Howard Santa ; Nash Interiano ; Zane Thompson ; Hever Kulkarni ; Deloris Christopher ; Leslye Chisholm ; Lainey Castro ; Yao Garcia ; Yefri Allan Other Interventions: Discharge Summary Assessment (RN) Last Done: 11/08/22 15:40
--- NOTE | 2022-11-08 17:02 | Electrocardiogram Report ---
Test Reason : Blood Pressure : / mmHG Vent. Rate : 052 BPM Atrial Rate : 052 BPM P-R Int : 180 ms QRS Dur : 086 ms QT Int : 474 ms P-R-T Axes : 058 049 097 degrees QTc Int : 440 ms Poor data quality, interpretation may be adversely affected Sinus bradycardia Nonspecific T wave abnormality Abnormal ECG When compared with ECG of 08-NOV-2022 06:26, (unconfirmed) Nonspecific T wave abnormality now evident in Anterior leads Confirmed by Doni Villa ([id number]) on 11/08/2022 5:02:24 PM Referred By: REFERRED SELF Confirmed By:Be Villa
--- NOTE | 2022-11-08 17:11 | Electrocardiogram Report ---
Test Reason : Blood Pressure : / mmHG Vent. Rate : 057 BPM Atrial Rate : 057 BPM P-R Int : 176 ms QRS Dur : 080 ms QT Int : 488 ms P-R-T Axes : 060 045 068 degrees QTc Int : 474 ms Sinus bradycardia Nonspecific T wave abnormality Prolonged QT Abnormal ECG When compared with ECG of 07-NOV-2022 22:50, QT has lengthened Confirmed by Doni Villa ([id number]) on 11/08/2022 5:10:54 PM Referred By: REFERRED SELF Confirmed By:Be Villa
[2022-11-08] MEDS ORDERED: METOPROLOL TARTRATE 25 MG TAB PO SCH (21:00)
== END 2022-11-08 16:20 | disposition home or self-care (01) ==
LOC: ED 22:39 → 2S 22:39